=== PATIENT | female | born 1985 | race Caucasian/White ===

== ENCOUNTER 2018-02-08 18:40 | Inpatient (IN) ==
--- NOTE | 2018-02-08 18:51 | Emergency Department Note ---
Disposition Clinical Impression: Medical clearance for psychiatric admission, Acute psychosis Disposition: Admitted As Inpatient Condition: Undetermined Referrals: NONE,PCP [Primary Care Provider] - Forms: ED Satisfaction Letter Time of Disposition: 20:38 General Adult HPI - General Chief complaint: ED Psychiatric Symptoms Stated complaint: Pysch Time Seen by Provider: 02/08/18 18:43 Source: patient, EMS Mode of arrival: EMS Limitations: altered mental status Nursing Notes Reviewed: Yes Vital Signs Reviewed: Yes - History of Present Illness HPI Narrative: 32-year-old female with extensive psychiatric history, arrives to the emergency department from [facility]. The patient has concerns for delusions, psychosis and paranoia noted from EMS as well as caregivers. The patient arrives for medical clearance and then admission to 1 a per caregivers. The patient was pink slipped by EMS versus caregivers at [facility]. She arrives to the emergency department with a pink slip and place. The patient denies any active complaints at this time. She denies any suicidal or homicidal ideations. The patient does admit to the fact that "they are trying to keep her from suing different businesses". The patient denies any suicidal homicidal ideations. She is slightly agitated in the room. Pain Scale: 0 - Related Data Home Medications Medication Instructions Recorded Confirmed Multivitamin [One Daily 1 tab PO DAILY 02/08/18 02/08/18 Multivitamin] Omeprazole [PriLOSEC] 40 mg PO DAILY 02/08/18 02/08/18 Ondansetron ODT [Zofran ODT] 4 mg SL Q6H PRN 02/08/18 02/08/18 Allergies Allergy/AdvReac Type Severity Reaction Status Date / Time Penicillins Allergy See Verified 01/22/18 17:57 Comments All systems ED: reviewed and negative except as stated. Constitutional: Denies: fever, chills, weakness ENT ED: Denies: congestion Cardiovascular: Denies: chest pain Respiratory: Denies: dyspnea Gastrointestinal: Denies: abdominal pain Genitourinary: Denies: urgency Musculoskeletal: Denies: back pain Neurological: Denies: headache Psychiatric: Reports: anxiety. Denies: suicidal thoughts, homicidal thoughts, auditory hallucinations, visual hallucinations Past Medical History - Past Medical History Attestation: Yes The following information was validated with the patient. Source: patient Medical history: Reports: GERD Surgical history: Reports: no surgical history Psychiatric history: Reports: anxiety, bipolar, depression, PTSD, schizophrenia , previous psychiatric hospitalization GASTROENTEROLOGY MANAGER history: Reports: no GASTROENTEROLOGY MANAGER history - Social History Smoking Status: Current every day smoker Smokeless Tobacco Status: No Alcohol use: Reports: rarely Drug use: Reports: none Physical Exam - General Limitations: no limitations General appearance: alert, in no apparent distress, anxious - Head Head exam: atraumatic, normocephalic, normal inspection - Eye Eye exam: Present: normal appearance, PERRL, EOMI - ENT ENT exam: normal exam, normal oropharynx, mucous membranes moist - Neck Neck exam: Present: normal inspection, full ROM, trachea midline - Chest Chest inspection: Present: normal inspection, symmetric chest wall rise - Respiratory Respiratory exam: Present: normal lung sounds bilaterally - Cardiovascular Cardiovascular exam: Present: regular rate - Abdominal Exam Abdominal exam: Present: soft, Non-Tender. Absent: tenderness, distention, guarding, rebound, rigidity - Extremities Exam Extremities exam: Present: normal inspection, full ROM. Absent: tenderness, pedal edema - Neurological Exam Neurological exam: Present: alert, oriented X3, CN II-XII intact - Psychiatric Psychiatric exam: Present: agitated, anxious, manic. Absent: homicidal ideation , suicidal ideation - Skin Skin exam: Present: warm, dry, intact, normal color Course Vital Signs Temperature 98.9 F 02/08/18 18:42 Pulse Rate 89 02/08/18 18:42 Respiratory Rate 16 02/08/18 18:42 Blood Pressure 119/7 02/08/18 18:42 O2 Sat by Pulse Oximetry 97 02/08/18 18:42 Temperature 98.9 F 02/08/18 18:42 Pulse Rate 89 02/08/18 18:42 Respiratory Rate 16 02/08/18 18:42 Blood Pressure 119/7 02/08/18 18:42 O2 Sat by Pulse Oximetry 97 02/08/18 18:42 Oxygen Delivery Oxygen Delivery Room Air Medical Decision Making - MDM Narrative Medical decision making narrative: Patient medically cleared here in the emergency department. We will notify one a at this time for likely admission and she is supposed to obtain. One a notified at 2025. Patient accepted by Dr. Flowers. - Lab Data Lab results reviewed: Yes I reviewed the patient's lab results. Result diagrams: 02/08/18 19:02 02/08/18 19:02 Lab Results 02/08/18 02/08/18 02/08/18 Range/Units 19:02 19:02 19:02 WBC 12.9 H (4.3-11.1) K/mcL RBC 4.16 (3.82-4.97) M/mcL Hgb 13.6 (11.5-15.4) g/dL Hct 41.2 (35.3-44.9) % MCV 99.0 (83.0-100.0) fL MCH 32.7 (28.0-33.3) pg MCHC 33.0 (31.6-35.5) g/dL RDW 14.0 (11.5-14.5) % Plt Count 364 (140-400) K/mcL MPV 9.5 (9.4-12.4) fL Immature Gran % 0.8 (0-4) % Seg Neutrophils % 65.9 % Lymphocytes % 23.7 % Monocytes % 7.7 % Eosinophils % 1.7 % Basophils % 0.2 % Neutrophils # 8.5 (1.6-8.9) K/mcL Lymphocytes # 3.1 (0.6-4.6) K/mcL Monocytes # 1.0 (0.0-1.3) K/mcL Eosinophils # 0.2 (0.0-0.6) K/mcL Basophils # 0.0 (0.0-0.2) K/mcL Sodium 139 (136-145) mEq/L Potassium 3.7 (3.5-5.1) mEq/L Chloride 109 H (98-107) mEq/L Carbon Dioxide 20 L (23-29) mEq/L BUN 5 L (6-20) mg/dL Creatinine 0.65 (0.60-1.20) mg/dL Est GFR ( Amer) > 60 (> 60) Est GFR (Non-Af Amer) > 60 (> 60) BUN/Creatinine Ratio 8 (6-26) Glucose 229 H (70-105) mg/dL Calculated Osmolality 293 (280-300) Calcium 8.8 (8.6-10.3) mg/dL Serum , Qual Negative (Negative) Urine Color (Yellow) Urine Clarity (Clear) Urine pH (5.0-8.0) pH Units Ur Specific [place] (1.010-1.025) Urine Protein (Neg-Trace) mg/dL Urine Glucose (UA) (Normal) mg/dL Urine Ketones (Negative) mg/dL Urine Blood (Negative) Urine Nitrite (Negative) Urine Bilirubin (Negative) Urine Urobilinogen (Normal) mg/dL Ur Leukocyte Esterase (Negative) Salicylates < 2.5 L (15.0-30.0) mg/dL Urine Opiates Screen (Sczulr=973) ng/mL Acetaminophen < 10 L (10-20) mcg/mL Ur Barbiturates Screen (Pctyji=745) ng/mL Ur Phencyclidine Scrn (Cutoff=25) ng/mL Ur Amphetamines Screen (Ukwujz=7955) ng/mL U Benzodiazepines Scrn (Ssegnc=646) ng/mL Urine Cocaine Screen (Cutoff= 300) ng/mL U Marijuana (THC) Screen (Cutoff = 50) ng/mL Ethyl Alcohol < 10 (Less than 10) mg/dL Specimen Rejected 02/08/18 02/08/18 02/08/18 Range/Units 19:09 19:09 19:09 WBC (4.3-11.1) K/mcL RBC (3.82-4.97) M/mcL Hgb (11.5-15.4) g/dL Hct (35.3-44.9) % MCV (83.0-100.0) fL MCH (28.0-33.3) pg MCHC (31.6-35.5) g/dL RDW (11.5-14.5) % Plt Count (140-400) K/mcL MPV (9.4-12.4) fL Immature Gran % (0-4) % Seg Neutrophils % % Lymphocytes % % Monocytes % % Eosinophils % % Basophils % % Neutrophils # (1.6-8.9) K/mcL Lymphocytes # (0.6-4.6) K/mcL Monocytes # (0.0-1.3) K/mcL Eosinophils # (0.0-0.6) K/mcL Basophils # (0.0-0.2) K/mcL Sodium (136-145) mEq/L Potassium (3.5-5.1) mEq/L Chloride (98-107) mEq/L Carbon Dioxide (23-29) mEq/L BUN (6-20) mg/dL Creatinine (0.60-1.20) mg/dL Est GFR ( Amer) (> 60) Est GFR (Non-Af Amer) (> 60) BUN/Creatinine Ratio (6-26) Glucose (70-105) mg/dL Calculated Osmolality (280-300) Calcium (8.6-10.3) mg/dL Serum , Qual (Negative) Urine Color Yellow (Yellow) Urine Clarity Clear (Clear) Urine pH 6.0 (5.0-8.0) pH Units Ur Specific [place] 1.017 (1.010-1.025) Urine Protein Negative (Neg-Trace) mg/dL Urine Glucose (UA) Normal (Normal) mg/dL Urine Ketones Negative (Negative) mg/dL Urine Blood Negative (Negative) Urine Nitrite Negative (Negative) Urine Bilirubin Negative (Negative) Urine Urobilinogen Normal (Normal) mg/dL Ur Leukocyte Esterase Negative (Negative) Salicylates (15.0-30.0) mg/dL Urine Opiates Screen Negative (Lcpwiz=657) ng/mL Acetaminophen (10-20) mcg/mL Ur Barbiturates Screen Negative (Klnbfl=970) ng/mL Ur Phencyclidine Scrn Negative (Cutoff=25) ng/mL Ur Amphetamines Screen Negative (Oemeef=5504) ng/mL U Benzodiazepines Scrn Negative (Cwjtfw=385) ng/mL Urine Cocaine Screen Negative (Cutoff= 300) ng/mL U Marijuana (THC) Screen Negative (Cutoff = 50) ng/mL Ethyl Alcohol (Less than 10) mg/dL Specimen Rejected Miscellaneous - Radiology Data Radiology results reviewed: Yes I reviewed the patient's radiology results.
[2018-02-08 19:15] LABS: Basophils % 0.2 %; Eosinophils # 0.2 K/mcL (0.0-0.6); Eosinophils % 1.7 %; Hematocrit 41.2 % (35.3-44.9); Hemoglobin 13.6 g/dL (11.5-15.4); Immature Granulocytes % 0.8 % (0-4); Lymphocytes # 3.1 K/mcL (0.6-4.6); Lymphocytes % 23.7 %; Mean Corpuscular Hemoglobin 32.7 pg (28.0-33.3); Mean Platelet Volume 9.5 fL (9.4-12.4); Monocytes % 7.7 %; Neutrophils # 8.5 K/mcL (1.6-8.9); Platelet Count 364 K/mcL (140-400); Red Blood Count 4.16 M/mcL (3.82-4.97); Segmented Neutrophils % 65.9 %
[2018-02-08 19:33] LABS: Acetaminophen < 10 mcg/mL (10-20); BUN/Creatinine Ratio 8 (6-26); Blood Urea Nitrogen 5 mg/dL (6-20); Calcium 8.8 mg/dL (8.6-10.3); Carbon Dioxide 20 mEq/L (23-29); Chloride 109 mEq/L (98-107); Ethanol < 10 mg/dL (Less than 10); Glucose 229 mg/dL (70-105); Osmolality,Calculated 293 (280-300); Potassium 3.7 mEq/L (3.5-5.1); Salicylate < 2.5 mg/dL (15.0-30.0); Sodium 139 mEq/L (136-145); eGFR For African Americans > 60 (> 60); eGFR For Non-African Americans > 60 (> 60)
[2018-02-08 19:42] LABS: Bilirubin,Urine Negative (Negative); Blood,Urine Negative (Negative); Clarity,Urine Clear (Clear); Color,Urine Yellow (Yellow); Glucose,Urine (UA) Normal (Normal); Ketones,Urine Negative (Negative); Leukocyte Esterase,Urine Negative (Negative); Nitrite,Urine Negative (Negative); Protein,Urine Negative (Neg-Trace); Specific Gravity,Urine 1.017 (1.010-1.025); Urobilinogen,Urine Normal (Normal)
[2018-02-08 20:15] LABS: Amphetamine Screen,Urine Negative ng/mL (Cutoff=1000); Barbiturate Screen,Urine Negative ng/mL (Cutoff=200); Benzodiazepines Screen,Urine Negative ng/mL (Cutoff=200); Cannabinoid Screen,Urine Negative ng/mL (Cutoff = 50); Cocaine Screen,Urine Negative ng/mL (Cutoff= 300); Opiate Screen,Urine Negative ng/mL (Cutoff=300); Phencyclidine Screen,Urine Negative ng/mL (Cutoff=25)
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
[2018-02-08] MEDS ORDERED: *HR* LORazepam 2 MG/ML VIAL IM PRN (21:01)
[2018-02-08] MEDS ORDERED: Acetaminophen 325 MG TABLET PO PRN (21:01)
[2018-02-08] MEDS ORDERED: MOM Conc 10 ML UD.LIQ PO PRN (21:01)
[2018-02-08] MEDS ORDERED: hydrOXYzine pamoate 25 MG CAPSULE PO PRN (21:01)
[2018-02-08] MEDS ORDERED: traZODone 50 MG TABLET PO PRN (21:01)
[2018-02-08] MEDS ORDERED: *HR* LORazepam 1 MG TABLET PO PRN (21:01)
[2018-02-08] MEDS ORDERED: Haloperidol Lactate 5 MG/ML VIAL IM PRN (21:01)
[2018-02-08] MEDS ORDERED: Ondansetron ODT 4 MG TAB.RAPDIS SL PRN (21:04)
[2018-02-08] MEDS ORDERED: *HR* LORazepam 1 MG TABLET PO ONE ×2 (21:09→21:14)
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
--- NOTE | 2018-02-10 07:29 | Psychiatry Progress Note ---
Date of Encounter: 02/10/18 Time of Encounter: 07:00 Subjective Interval history: Pt is a 32 yo, , female, never (questionable legal marriage), with no children who presents for mood and depression to the emergency department. hyperreligiousosity noted. 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 Your wrong and trying to poison me. Your just using sorcery to get what you want. Pt noted "I stopped all my meds, I dont need them....God does not want me to have them I went up there and talked to him." Pt noted she felt safe and comfortable on the unit. Pt noted that she is doing fine today. Pt noted she slept 8 hours last night. Pt noted her appetite is good. Pt rated her depression a 0, on a scale of zero to ten with ten being the worst and zero being none. Pt rate her anxiety a 0, on the same scale. Pt denied any current visual or auditory hallucinations. Pt denied any thoughts to harm herself or anyone else. PT refusing all medications at this time. Pt was educated on the risks benefits and side-effects of these medications including no medication, pt was in agreement. Pt denied any hx of HIV, Hep C, or seizures pt noted delusions of previous stroke and calls it her TBI. No TD noted, AIMS=0 "I go up to [facility] and see my family occasionally, my family is witches, they are not my real family they admitted sorcery to me. My parents are from a different country, I dont know how I edded [facility] [place], the reserection is going on and I am saved. .....My [place] is [employer], I ran into her and ended up in her womb.....and yes people do demonic sacrifices of their children too......" Tobacco: 1ppd Alcohol: Denies Street: Denies Caffeine: 2-3 per day 1.Interval hx 2.Continue current medications 3.Review current labs 4.Pt had an opportunity to ask questions and discuss current treatment plan. 5.Supportive therapy was provided 6.Pt encouraged to consider group or individual therapy 7.Pt was in agreement with treatment plan. 8.Pt was educated on the risks benefits and side effects of current medications. 9. Continue to encourage pt to start fluphenazine for mood and psychosis Review of Systems Constitutional: Denies: fever, chills, weakness, weight change Eyes: Denies: eye pain, vision change Ears, Nose, Throat: Denies: ear pain, throat pain, dental pain, hearing loss, congestion Cardiovascular: Denies: chest pain, palpitations, dyspnea on exertion Respiratory: Denies: cough, dyspnea, wheezes Gastrointestinal: Denies: abdominal pain, nausea, vomiting, diarrhea, constipation Musculoskeletal: Denies: joint swelling, joint pain Neurological: Denies: headache, weakness, numbness, memory loss Psychiatric: Reports: auditory hallucinations, anhedonia, confusion Results - Vital Signs Vital Signs: Temp Pulse Resp BP Pulse Ox 98.8 F 99 19 132/83 97 02/09/18 08:57 02/09/18 08:57 02/09/18 08:57 02/09/18 08:57 02/08/18 18:42 Assessment and Plan (1) Acute psychosis Current visit: Yes Status: Acute Plan: Continue hospitalization, Close observation, Suicide Precautions per unit protocol, Encourage participation in unit milieu, Group Therapy, Monitor sleep, Monitor appetite Risks, benefits, side effects, alternatives discussed w/pt: Yes Patient agreeable to treatment: No (2) Schizoaffective disorder, bipolar type Current visit: No Status: Acute Plan: Continue hospitalization, Close observation, Suicide Precautions per unit protocol, Encourage participation in unit milieu, Group Therapy, Monitor sleep, Monitor appetite Risks, benefits, side effects, alternatives discussed w/pt: Yes Patient agreeable to treatment: No (3) Suicidal ideation Current visit: No Status: Acute Plan: Continue hospitalization, Close observation, Suicide Precautions per unit protocol, Encourage participation in unit milieu, Group Therapy, Monitor sleep, Monitor appetite Risks, benefits, side effects, alternatives discussed w/pt: Yes Patient agreeable to treatment: Yes (4) Post traumatic stress disorder (PTSD) Current visit: No Status: Acute Plan: Continue hospitalization, Close observation, Suicide Precautions per unit protocol, Encourage participation in unit milieu, Group Therapy, Monitor sleep, Monitor appetite Risks, benefits, side effects, alternatives discussed w/pt: Yes Patient agreeable to treatment: Yes Consult Discharge Plan - Plan Referrals: [facility] [place] [Outside] - 03/01/18 4:00 pm (The above appointment is with Dr. Barrios for primary care. You will also be seeing Erika for mental health counseling on March 01, 2018 at 4:30pm following your doctor appointment.) Psychiatry Exam - Constitutional Vitals: Temp Pulse Resp BP Pulse Ox 98.8 F 99 19 132/83 97 02/09/18 08:57 02/09/18 08:57 02/09/18 08:57 02/09/18 08:57 02/08/18 18:42 General appearance: age & developmentally appropriate, well-groomed, well- nourished - Musculoskeletal Gait: normal Station: relaxed Strength & Tone: normal for patient - Psychiatric Patient Orientation: Yes Person, Yes Time, Yes Place Level of alertness: Alert Behavior: calm, suspicious Psychomotor activity: Normal Eye Contact: Maintains Eye Contact Mood Description: Euthymic/stable, Anxious Affect description: congruent with mood, full range, anxious Speech Volume: Normal Speech pattern: normal rate, normal rhythm, normal tone, fluent, spontaneous Language & Vocabulary: consistent with education Thought Process: Tangential, Flight of Ideas, Thought Blocking, Evasive Thought Content: No Suicidal ideation, No Homicidal ideation, Yes Overt delusions, Yes Ideas of reference, Yes Preoccupation, Yes Paranoid delusion, Yes Restoration delusion, Yes Grandiose delusion Perceptual Disturbances: Yes Reacting to internal stimuli Attention Span Ability: Capable of Focused Attention Memory Description: Grossly Intact Patient Reliability: Reliable Historian Fund of knowledge: Yes abstraction ability, Yes aware of current events Intelligence Estimate: Average Judgment: Poor Insight: Minimal
--- NOTE | 2018-02-11 15:30 | Psychiatry Progress Note ---
Date of Encounter: 02/11/18 Time of Encounter: 15:00 Subjective Interval history: Pt is a 32 yo, , female, never (questionable legal marriage), with no children who presents for mood and depression to the emergency department. hyperreligiousosity noted. Pt noted I am a sabianism resurected and do not need your medications. Your wrong, your trying to experiment with drugs on me. Your using sorcery to get what you want. Pt noted "I am a sabianism, I am stopping all of my meds, I dont need them....God does not want me to have them." Pt noted she felt safe and comfortable on the unit. Pt noted that she is doing fine today. Pt noted she slept 8 hours last night. Pt noted her appetite is good. Pt rated her depression a 0, on a scale of zero to ten with ten being the worst and zero being none. Pt rate her anxiety a 0, on the same scale. Pt denied any current visual or auditory hallucinations, however questionable thought blocking noted. Pt denied any thoughts to harm herself or anyone else. PT refusing all medications at this time noting grandiose sabianism delusions as the reasons why. Pt was educated on the risks benefits and side-effects of these medications including no medication, pt was in agreement. Pt denied any hx of HIV, Hep C, seizures or TBI. No TD noted, AIMS=0 "I go up to [facility] and see my family occasionally, my family is witches, they are not my real family they admitted sorcery to me. My parents are from a different country, I dont know how I edded up in [place], the reserection is going on and I am saved. .....My [place] is [place], I ran into her and ended up in her womb.....and yes people do demonic sacrifices of their children too......" Tobacco: 1ppd Alcohol: Denies Street: Denies Caffeine: 2-3 per day 1.Interval hx 2.Continue current medications 3.Review current labs 4.Pt had an opportunity to ask questions and discuss current treatment plan. 5.Supportive therapy was provided 6.Pt encouraged to consider group or individual therapy 7.Pt was in agreement with treatment plan. 8.Pt was educated on the risks benefits and side effects of current medications. 9. Continue to encourage pt to start fluphenazine for mood and psychosis 10. Court date pending for involuntary hold and court ordered medications. Review of Systems Constitutional: Denies: fever, chills, weakness, weight change Eyes: Denies: eye pain, vision change Ears, Nose, Throat: Denies: ear pain, throat pain, dental pain, hearing loss, congestion Cardiovascular: Denies: chest pain, palpitations, dyspnea on exertion Respiratory: Denies: cough, dyspnea, wheezes Gastrointestinal: Denies: abdominal pain, nausea, vomiting, diarrhea, constipation Musculoskeletal: Denies: joint swelling, joint pain Neurological: Denies: headache, weakness, numbness, memory loss Psychiatric: Reports: auditory hallucinations, anhedonia, confusion Results - Vital Signs Vital Signs: Temp Pulse Resp BP Pulse Ox 98.8 F 99 19 132/83 97 02/09/18 08:57 02/09/18 08:57 02/09/18 08:57 02/09/18 08:57 02/08/18 18:42 Assessment and Plan (1) Acute psychosis Current visit: Yes Status: Acute Plan: Continue hospitalization, Close observation, Suicide Precautions per unit protocol, Encourage participation in unit milieu, Group Therapy, Monitor sleep, Monitor appetite Risks, benefits, side effects, alternatives discussed w/pt: Yes Patient agreeable to treatment: No (2) Schizoaffective disorder, bipolar type Current visit: No Status: Acute Plan: Continue hospitalization, Close observation, Suicide Precautions per unit protocol, Encourage participation in unit milieu, Group Therapy, Monitor sleep, Monitor appetite Risks, benefits, side effects, alternatives discussed w/pt: Yes Patient agreeable to treatment: No (3) Suicidal ideation Current visit: No Status: Acute Plan: Continue hospitalization, Close observation, Suicide Precautions per unit protocol, Encourage participation in unit milieu, Group Therapy, Monitor sleep, Monitor appetite Risks, benefits, side effects, alternatives discussed w/pt: Yes Patient agreeable to treatment: Yes (4) Post traumatic stress disorder (PTSD) Current visit: No Status: Acute Plan: Continue hospitalization, Close observation, Suicide Precautions per unit protocol, Encourage participation in unit milieu, Group Therapy, Monitor sleep, Monitor appetite Risks, benefits, side effects, alternatives discussed w/pt: Yes Patient agreeable to treatment: Yes Consult Discharge Plan - Plan Referrals: [facility] [place] [Outside] - 03/01/18 4:00 pm (The above appointment is with Dr. Barrios for primary care. You will also be seeing Erika for mental health counseling on March 01, 2018 at 4:30pm following your doctor appointment.) Psychiatry Exam - Constitutional Vitals: Temp Pulse Resp BP Pulse Ox 98.8 F 99 19 132/83 97 02/09/18 08:57 02/09/18 08:57 02/09/18 08:57 02/09/18 08:57 02/08/18 18:42 General appearance: age & developmentally appropriate, well-groomed, well- nourished - Musculoskeletal Gait: normal Station: relaxed Strength & Tone: normal for patient - Psychiatric Patient Orientation: Yes Person, Yes Time, Yes Place Level of alertness: Alert Behavior: calm, agitated, suspicious Psychomotor activity: Normal Eye Contact: Maintains Eye Contact Mood Description: Expansive Affect description: congruent with mood Speech Volume: Normal Speech pattern: normal rate, normal rhythm, normal tone, fluent, spontaneous Language & Vocabulary: consistent with education Thought Process: Loose Associations, Tangential, Thought Blocking, Disorganized Thought Content: Yes Paranoid delusion, Yes Lutheran delusion, Yes Grandiose delusion Perceptual Disturbances: Yes Reacting to internal stimuli Attention Span Ability: Capable of Sustained Attention Memory Description: Grossly Intact Patient Reliability: Questionable Historian Fund of knowledge: Yes average Intelligence Estimate: Average Judgment: Poor Insight: Minimal
--- NOTE | 2018-02-12 19:10 | Psychiatry Progress Note ---
Date of Encounter: 02/12/18 Time of Encounter: 12:45 Subjective Interval history: Pt is a 32 yo, , female, never (questionable legal marriage), with no children who presents for mood and depression to the emergency department. hyperreligiousosity noted. 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 Pt noted that she is doing fine today. Pt noted she slept 8 hours last night. Pt noted her appetite is good. Pt rated her depression a 0, on a scale of zero to ten with ten being the worst and zero being none. Pt rate her anxiety a 0, on the same scale. Pt denied any current visual or auditory hallucinations, however questionable thought blocking noted. Pt denied any thoughts to harm herself or anyone else. PT refusing all medications at this time noting grandiose moravian delusions as the reasons why. Pt was educated on the risks benefits and side-effects of these medications including no medication, pt was in agreement. Pt denied any hx of HIV, Hep C, seizures or TBI. No TD noted, AIMS=0 previous statement: "I go up to [facility] and see my family occasionally, my family is witches, they are not my real family they admitted sorcery to me. My parents are from a different country, I dont know how I edded up [place], the reserection is going on and I am saved. .....My [place] is [place], I ran into her and ended up in her womb.....and yes people do demonic sacrifices of their children too......" Tobacco: 1ppd Alcohol: Denies Street: Denies Caffeine: 2-3 per day 1.Interval hx 2.Continue current medications 3.Review current labs 4.Pt had an opportunity to ask questions and discuss current treatment plan. 5.Supportive therapy was provided 6.Pt encouraged to consider group or individual therapy 7.Pt was in agreement with treatment plan. 8.Pt was educated on the risks benefits and side effects of current medications. 9. Continue to encourage pt to start fluphenazine for mood and psychosis 10. Court date pending for involuntary hold and court ordered medications. Review of Systems Psychiatric: Reports: auditory hallucinations, anhedonia, confusion Results - Vital Signs Vital Signs: Temp Pulse Resp BP Pulse Ox 98.8 F 99 19 132/83 97 02/09/18 08:57 02/09/18 08:57 02/09/18 08:57 02/09/18 08:57 02/08/18 18:42 Assessment and Plan (1) Acute psychosis Current visit: Yes Status: Acute Risks, benefits, side effects, alternatives discussed w/pt: Yes Patient agreeable to treatment: No (2) Schizoaffective disorder, bipolar type Current visit: No Status: Acute Risks, benefits, side effects, alternatives discussed w/pt: Yes Patient agreeable to treatment: No (3) Suicidal ideation Current visit: No Status: Acute Risks, benefits, side effects, alternatives discussed w/pt: Yes Patient agreeable to treatment: Yes (4) Post traumatic stress disorder (PTSD) Current visit: No Status: Acute Risks, benefits, side effects, alternatives discussed w/pt: Yes Patient agreeable to treatment: Yes Consult Discharge Plan - Plan Referrals: [facility] [place] [Outside] - 03/01/18 4:00 pm (The above appointment is with Dr. Barrios for primary healthcare and medication management services. You will also be seeing Erika for mental health counseling on March 01, 2018 at 4:30pm following your doctor appointment.) Psychiatry Exam - Constitutional Vitals: Temp Pulse Resp BP Pulse Ox 98.8 F 99 19 132/83 97 02/09/18 08:57 02/09/18 08:57 02/09/18 08:57 02/09/18 08:57 02/08/18 18:42
[2018-02-13] MEDS: Mag Hydrox/Al Hydrox/Simeth 30 ML UDC PO PRN (09:31)
--- NOTE | 2018-02-13 10:21 | Psychiatry Progress Note ---
Date of Encounter: 02/13/18 Time of Encounter: 09:50 Subjective Interval history: Patient seen today , case d/w staff and chart reviewed , She is 32 year ld SWF with h/o Schizophrenia , she was admitted as stopped all her psychiatric medications,she was supposed to have surgery but she refused . she at present states i do not need medicine with medicine i feel like fat slob that can not do any thing. I am not danger to my self or others , i do not hear voices, i was misdiagnosed. i get vision which is private btw me and God and then states i saw GOD and Daniel andry came down and i saw Satan but God fight for me and i am safe and he will heal me. i have cysts all over my body i believe it is possible that i was struck by Satan and he gave me that , I am Catholic and i will be struck with devil and satan. if God will tell me that person is evil and will hurt , then i will do something but until then i will not do anything. i believe in scientalogy as it work thru mind and not medicine. i am not violent and i just do not want medicine. i have tried abilify it is dangerous medicine , when i took it the devil enter in me and made me hurt someone but i did not hurt anyone Thank God. also has tried risperdal which makes her sick. olanzapine makes me fat and lazy , seroquel is same. physically feels better. She is still refusing all medications. Review of Systems Psychiatric: Reports: auditory hallucinations, anhedonia, confusion Results - Vital Signs Vital Signs: Temp Pulse Resp BP Pulse Ox 98.8 F 99 19 132/83 97 02/09/18 08:57 02/09/18 08:57 02/09/18 08:57 02/09/18 08:57 02/08/18 18:42 Assessment and Plan (1) Schizoaffective disorder, bipolar type Current visit: No Status: Acute Plan: Continue hospitalization, Close observation, Encourage participation in unit milieu, Group Therapy, Monitor appetite, Family/Supportive other meeting Risks, benefits, side effects, alternatives discussed w/pt: Yes Patient agreeable to treatment: No Consult Discharge Plan - Plan Referrals: [facility] [place] [Outside] - 03/01/18 4:00 pm (The above appointment is with Dr. Barrios for primary healthcare and medication management services. You will also be seeing Erika for mental health counseling on March 01, 2018 at 4:30pm following your doctor appointment.) Psychiatry Exam - Constitutional Vitals: Temp Pulse Resp BP Pulse Ox 98.8 F 99 19 132/83 97 02/09/18 08:57 02/09/18 08:57 02/09/18 08:57 02/09/18 08:57 02/08/18 18:42 General appearance: age & developmentally appropriate - Musculoskeletal Gait: normal Station: relaxed Strength & Tone: normal for patient - Psychiatric Patient Orientation: Yes Person, Yes Time, Yes Place Level of alertness: Alert Behavior: calm, cooperative Psychomotor activity: Normal Eye Contact: Maintains Eye Contact Mood Description: Euthymic/stable Affect description: constricted Speech Volume: Normal Speech pattern: normal rate, normal rhythm, normal tone Language & Vocabulary: consistent with education Thought Process: Intact Thought Content: Yes Mosque delusion, Yes Grandiose delusion, Yes Somatic delusion Perceptual Disturbances: Yes Visual hallucinations Attention Span Ability: Capable of Focused Attention Memory Description: Grossly Intact Patient Reliability: Reliable Historian Fund of knowledge: Yes average Intelligence Estimate: Average Judgment: Limited Insight: None
--- NOTE | 2018-02-14 11:52 | Psychiatry Progress Note ---
Date of Encounter: 02/14/18 Time of Encounter: 11:25 Subjective Interval history: Patient seen today , case d/w staff , as per staff has been refusing treatment and not taking any medicine. She states she is sleeping good and feels well rested , i feel good , i am eating and i am walking the halls to get exercise. she is denying being depressed but feels frustrated about being in hospital , she denies a/v hallucination , states i do not have any visions now and i knoe God does not want me to be in hospital. i know there is marquez btw good and evil and therefore i need to be in hindu, with medications its hard to be in programme. she is preoccupied with Confucianism and going their for treatment , feels psychiatric medications make her mind worse, states i can clear my mind my self/ refusing medications. she denies si/hi. Review of Systems Psychiatric: Reports: auditory hallucinations, anhedonia, confusion Results - Vital Signs Vital Signs: Temp Pulse Resp BP Pulse Ox 98.8 F 99 19 132/83 97 02/09/18 08:57 02/09/18 08:57 02/09/18 08:57 02/09/18 08:57 02/08/18 18:42 Assessment and Plan (1) Schizoaffective disorder, bipolar type Current visit: No Status: Acute Risks, benefits, side effects, alternatives discussed w/pt: Yes Patient agreeable to treatment: No Consult Discharge Plan - Plan Referrals: [facility] [place] [Outside] - 03/01/18 4:00 pm (The above appointment is with Dr. Barrios for primary healthcare and medication management services. You will also be seeing Erika for mental health counseling on March 01, 2018 at 4:30pm following your doctor appointment.) Psychiatry Exam - Constitutional Vitals: Temp Pulse Resp BP Pulse Ox 98.8 F 99 19 132/83 97 02/09/18 08:57 02/09/18 08:57 02/09/18 08:57 02/09/18 08:57 02/08/18 18:42 General appearance: average - Musculoskeletal Gait: normal Station: other Strength & Tone: normal for patient - Psychiatric Patient Orientation: Yes Person, Yes Time, Yes Place Level of alertness: Alert Behavior: calm, cooperative Psychomotor activity: Normal Eye Contact: Maintains Eye Contact Mood Description: Euthymic/stable Affect description: constricted Speech Volume: Normal Speech pattern: coherent Language & Vocabulary: consistent with education Thought Process: Circumstantial Thought Content: Yes Preoccupation Perceptual Disturbances: Yes Visual hallucinations Attention Span Ability: Capable of Focused Attention Memory Description: Grossly Intact Patient Reliability: Reliable Historian Fund of knowledge: Yes average Intelligence Estimate: Average Judgment: Limited Insight: None
--- NOTE | 2018-02-15 11:04 | Psychiatry Progress Note ---
Date of Encounter: 02/15/18 Time of Encounter: 10:40 Subjective Interval history: patient seen today case d/w treatment team and she continuously refusing treatment and mostly pacing on the unit. I am bored and want to leave and get on with my life. tomorrow is probate hearing, she states her agency owner from [employer] will come. you are playing with some ones brain which is GOD s job and holy spirit. you are playing with my thought process and playing GOD. she has fixed delusion about being raped by demons , but now feels it stopped as GOD stopped it. as per rn case mgr she lost her housing as she was telling everyone that their is mold in building and her apartment, and she was let out of her lease. she states holy spirit in her telling her not to take medications and GOD will heal her and she is feeling better , medicine make me worse. remains delusional , not having any si/hi but she has agreed being told not to eat certain things and i will have allergic reaction to it. patient needs medications and treatment for her mental condition. Review of Systems Psychiatric: Reports: auditory hallucinations, anhedonia, confusion Results - Vital Signs Vital Signs: Temp Pulse Resp BP Pulse Ox 98.8 F 99 19 132/83 97 02/09/18 08:57 02/09/18 08:57 02/09/18 08:57 02/09/18 08:57 02/08/18 18:42 Assessment and Plan (1) Schizoaffective disorder, bipolar type Current visit: No Status: Acute Risks, benefits, side effects, alternatives discussed w/pt: Yes Patient agreeable to treatment: No Consult Discharge Plan - Plan Referrals: [facility] [place] [Outside] - 03/01/18 4:00 pm (The above appointment is with Dr. Barrios for primary healthcare and medication management services. You will also be seeing Erika for mental health counseling on March 01, 2018 at 4:30pm following your doctor appointment.) Psychiatry Exam - Constitutional Vitals: Temp Pulse Resp BP Pulse Ox 98.8 F 99 19 132/83 97 02/09/18 08:57 02/09/18 08:57 02/09/18 08:57 02/09/18 08:57 02/08/18 18:42 General appearance: average - Musculoskeletal Gait: normal Station: other Strength & Tone: normal for patient - Psychiatric Patient Orientation: Yes Person, Yes Time, Yes Place Level of alertness: Alert Behavior: cooperative, guarded Psychomotor activity: Normal Eye Contact: Maintains Eye Contact Mood Description: Other (better since i am off medicine.) Affect description: constricted Speech Volume: Normal Speech pattern: appropriate Language & Vocabulary: consistent with education Thought Process: Circumstantial Thought Content: Yes Preoccupation, Yes Paranoid delusion, Yes Religion delusion, Yes Grandiose delusion Perceptual Disturbances: Yes Reacting to internal stimuli Attention Span Ability: Capable of Focused Attention Memory Description: Grossly Intact Patient Reliability: Reliable Historian Fund of knowledge: Yes average Intelligence Estimate: Average Judgment: Limited Insight: None
[2018-02-16] MEDS: Ibuprofen 400 MG TABLET PO PRN (12:54)
--- NOTE | 2018-02-16 13:53 | Psychiatry Progress Note ---
Date of Encounter: 02/16/18 Time of Encounter: 13:10 Subjective Interval history: Patient seen today , case d/w treatment team , she is refusing all treatment including vitals bc God will heal her. She remains preoccupied wth medications are harming her and God has told her to not take medications, she is pacing a lot on unit but not agitated , she states she is pacing to exercise. she is denying si/hi but has vision of God and ashleigh andry. today is probate and will decide for her treatment plan. Review of Systems Psychiatric: Reports: auditory hallucinations, anhedonia, confusion Results - Vital Signs Vital Signs: Temp Pulse Resp BP Pulse Ox 98.8 F 99 19 132/83 97 02/09/18 08:57 02/09/18 08:57 02/09/18 08:57 02/09/18 08:57 02/08/18 18:42 Assessment and Plan (1) Schizoaffective disorder, bipolar type Current visit: No Status: Acute Risks, benefits, side effects, alternatives discussed w/pt: Yes Patient agreeable to treatment: No Consult Discharge Plan - Plan Referrals: [facility] [place] [Outside] - 03/01/18 4:00 pm (The above appointment is with Dr. Barrios for primary healthcare and medication management services. You will also be seeing Erika for mental health counseling on March 01, 2018 at 4:30pm following your doctor appointment.) Psychiatry Exam - Constitutional Vitals: Temp Pulse Resp BP Pulse Ox 98.8 F 99 19 132/83 97 02/09/18 08:57 02/09/18 08:57 02/09/18 08:57 02/09/18 08:57 02/08/18 18:42 General appearance: obese - Musculoskeletal Gait: normal Station: other Strength & Tone: normal for patient - Psychiatric Patient Orientation: Yes Person, Yes Time, Yes Place Level of alertness: Alert Behavior: cooperative, talkative Psychomotor activity: Normal Eye Contact: Minimal Contact Mood Description: Anxious Affect description: constricted Speech Volume: Normal Speech pattern: coherent, excessive Language & Vocabulary: consistent with education Thought Process: Circumstantial, Racing Thought Content: Yes Worship delusion, Yes Grandiose delusion Attention Span Ability: Capable of Focused Attention Memory Description: Grossly Intact Patient Reliability: Questionable Historian Fund of knowledge: Yes average Intelligence Estimate: Average Judgment: Poor Insight: None
[2018-02-16] MEDS: Mag Hydrox/Al Hydrox/Simeth 30 ML UDC PO PRN (20:19)
--- NOTE | 2018-02-17 11:54 | Psychiatry Progress Note ---
Date of Encounter: 02/17/18 Time of Encounter: 11:25 Subjective Interval history: Patient seen today case d/w treatment team , she had probate hearing yesterday and is now suppose to take medication as per court order. She is upset and states when i am ok why i need medicine, states reason i go to [facility] is witch craft is stonger than medications and i rather be in [facility] and not here, i wanted to proof to society i can live with out medications. I had seen GOD that is true and i have seen Satan that is true also. but i am not delusional and you all lied. i know abilify maked me feel like hurting people, she states effexor gives me headache and i throw up. Her records show show in 11/08 had more than 100 level of prolactin and medications caused hyper prolactin. she has had galactorrhea and therefore option to give other medication which will not affect her prolactin. Review of Systems Psychiatric: Reports: auditory hallucinations, anhedonia, confusion Results - Vital Signs Vital Signs: Temp Pulse Resp BP Pulse Ox 97.1 F L 93 16 123/76 97 02/17/18 08:23 02/17/18 08:23 02/17/18 08:02/17/18 08:23 02/08/18 18:42 Assessment and Plan (1) Schizoaffective disorder, bipolar type Current visit: No Status: Acute Risks, benefits, side effects, alternatives discussed w/pt: Yes Patient agreeable to treatment: No Consult Discharge Plan - Plan Referrals: [facility] [place] [Outside] - 03/01/18 4:00 pm (The above appointment is with Dr. Barrios for primary healthcare and medication management services. You will also be seeing Erika for mental health counseling on March 01, 2018 at 4:30pm following your doctor appointment.) Psychiatry Exam - Constitutional Vitals: Temp Pulse Resp BP Pulse Ox 97.1 F L 93 16 123/76 97 02/17/18 08:23 02/17/18 08:23 02/17/18 08:23 02/17/18 08:23 02/08/18 18:42 General appearance: obese, average - Musculoskeletal Gait: normal Station: other Strength & Tone: normal for patient - Psychiatric Patient Orientation: Yes Person, Yes Time, Yes Place Level of alertness: Alert Behavior: anxious, guarded Psychomotor activity: Normal Eye Contact: Maintains Eye Contact Mood Description: Irritable Affect description: congruent with mood Speech Volume: Normal Speech pattern: coherent Language & Vocabulary: consistent with education Thought Content: Yes Preoccupation, Yes Mandaeism delusion Attention Span Ability: Capable of Focused Attention Memory Description: Grossly Intact Patient Reliability: Questionable Historian Fund of knowledge: Yes average Intelligence Estimate: Average Judgment: Poor Insight: Minimal
[2018-02-17 14:21] LABS: Hematocrit 42.6 % (35.3-44.9); Hemoglobin 14.4 g/dL (11.5-15.4); Mean Corpuscular HGB Conc 33.8 g/dL (31.6-35.5); Mean Corpuscular Hemoglobin 33.1 pg (28.0-33.3); Mean Corpuscular Volume 97.9 fL (83.0-100.0); Mean Platelet Volume 9.8 fL (9.4-12.4); Platelet Count 364 K/mcL (140-400); Red Blood Count 4.35 M/mcL (3.82-4.97); Red Cell Distribution Width 12.3 % (11.5-14.5)
[2018-02-17 14:38] LABS: Estimated Average Glucose 111 mg/dl; Hemoglobin A1C 5.5 %
[2018-02-17] MEDS: Ibuprofen 400 MG TABLET PO PRN ×2 (17:13→22:40)
[2018-02-17] MEDS: Mag Hydrox/Al Hydrox/Simeth 30 ML UDC PO PRN (22:26)
[2018-02-18] MEDS: Ibuprofen 400 MG TABLET PO PRN ×2 (04:56→20:35)
[2018-02-18] MEDS: Mag Hydrox/Al Hydrox/Simeth 30 ML UDC PO PRN ×3 (09:06→21:56)
--- NOTE | 2018-02-18 09:27 | Psychiatry Progress Note ---
Date of Encounter: 02/18/18 Time of Encounter: 09:00 Subjective Interval history: Patient seen today , case d/w treatment team and she remains same . HER prolactin level is still high 69 and hga1c is 5.5. she has been off medications since 11/08. she was on injectable. at present can not take abilify as it caused her side effects and made her homicidal as per her. will start low dose rexulti and patient agreed with the plan , plan to increase slowly depending on her response. she has to be placed as has lost her housing. she is not on any medications at present. continue stabilization , patient is now on court order for her continuous treatment. Review of Systems Psychiatric: Reports: auditory hallucinations, anhedonia, confusion Results - Vital Signs Vital Signs: Temp Pulse Resp BP Pulse Ox 98.4 F 98 16 110/75 97 02/18/18 09:18 02/18/18 09:18 02/18/18 09:18 02/18/18 09:18 02/08/18 18:42 - Labs Labs: Laboratory Results - last 24 hr 02/17/18 02/17/18 02/17/18 14:07 14:07 14:07 WBC 9.7 RBC 4.35 Hgb 14.4 Hct 42.6 MCV 97.9 MCH 33.1 MCHC 33.8 RDW 12.3 Plt Count 364 MPV 9.8 Est Mean Plasma Glucose 111 Hemoglobin A1c 5.5 Prolactin 64.99 H Assessment and Plan (1) Schizoaffective disorder, bipolar type Current visit: No Status: Acute Risks, benefits, side effects, alternatives discussed w/pt: Yes Patient agreeable to treatment: No Consult Discharge Plan - Plan Referrals: [facility] [place] [Outside] - 03/01/18 4:00 pm (The above appointment is with Dr. Barrios for primary healthcare and medication management services. You will also be seeing Erika for mental health counseling on March 01, 2018 at 4:30pm following your doctor appointment.) Psychiatry Exam - Constitutional Vitals: Temp Pulse Resp BP Pulse Ox 98.4 F 98 16 110/75 97 02/18/18 09:18 02/18/18 09:18 02/18/18 09:18 02/18/18 09:18 02/08/18 18:42 General appearance: age & developmentally appropriate - Musculoskeletal Gait: normal Station: other Strength & Tone: normal for patient - Psychiatric Patient Orientation: Yes Person, Yes Time, Yes Place Level of alertness: Alert Behavior: cooperative, talkative Psychomotor activity: Normal Eye Contact: Maintains Eye Contact Mood Description: Euthymic/stable Affect description: constricted Speech Volume: Normal Speech pattern: coherent Language & Vocabulary: consistent with education Thought Process: Racing Thought Content: Yes Preoccupation, Yes Uatsdin delusion, Yes Grandiose delusion Attention Span Ability: Capable of Focused Attention Memory Description: Grossly Intact Patient Reliability: Questionable Historian Fund of knowledge: Yes average Intelligence Estimate: Average Judgment: Limited Insight: None
[2018-02-18] MEDS ORDERED: Brexpiprazole [Rexulti] 1 MG PO SCH (21:00)
[2018-02-19 09:49] VITALS: BP 131/74
--- NOTE | 2018-02-19 11:35 | Discharge Summary ---
Date of Encounter: 02/19/18 Time of Encounter: 11:32 Diagnosis - Discharge Diagnosis (1) Schizoaffective disorder, bipolar type Status: Acute Medications - Discharge Medications Prescriptions: Brexpiprazole [Rexulti] 1 mg PO HS #30 tablet Ferrous Sulfate [Iron] 325 mg PO DAILY 02/08/18 [History] Multivitamin [One Daily Multivitamin] 1 tab PO DAILY 02/08/18 [History] Omeprazole [PriLOSEC] 40 mg PO DAILY 02/08/18 [History] Brexpiprazole [Rexulti] 1 mg PO HS #30 tablet 02/19/18 [Rx] 3 Allergy/AdvReac Type Severity Reaction Status Date / Time Penicillins Allergy See Verified 01/22/18 17:57 Comments Results Procedures and tests throughout hospitalization: Completed Lab Orders Category Date Time Status CBC no Diff [Complete Blood Count w/o Diff] [HEME] Lab 02/17/18 14:07 Completed Routine Hgb A1C Routine Lab 02/17/18 14:07 Completed Prolactin Routine Lab 02/17/18 14:07 Completed Provider Date of admission: 02/08/18 20:59 Primary care physician: PCP NONE Discharging clinician: Nettie Apple Psychiatry Exam - Constitutional Vitals: Temp Pulse Resp BP Pulse Ox 96.8 F L 105 16 131/74 97 02/19/18 09:00 02/19/18 09:00 02/19/18 09:00 02/19/18 09:00 02/08/18 18:42 General appearance: age & developmentally appropriate, well-groomed, well- nourished - Musculoskeletal Gait: normal Station: relaxed Strength & Tone: normal for patient - Psychiatric Patient Orientation: Yes Person, Yes Time, Yes Place Level of alertness: Alert Behavior: calm, cooperative Psychomotor activity: Normal Eye Contact: Maintains Eye Contact Mood Description: Euthymic/stable Affect description: congruent with mood Speech Volume: Normal Speech pattern: normal rate, normal rhythm, normal tone, fluent, spontaneous Language & Vocabulary: consistent with education Thought Process: Linear, Goal Oriented Thought Content: No Suicidal ideation, No Homicidal ideation, Yes Overt delusions Perceptual Disturbances: Yes Auditory hallucinations Attention Span Ability: Capable of Focused Attention Memory Description: Grossly Intact Patient Reliability: Reliable Historian Fund of knowledge: Yes abstraction ability, Yes aware of current events Intelligence Estimate: Above [place] Judgment: Fair Insight: Minimal Hospital Course Hospital course: Ms. Agee is a 32 year old female admitted secondary to psychosis. Diagnosed with Schizoaffective Disorder. Client is very up front that she does not agree with her diagnosis or the need for medications. She is taking 1mg of a new antipsychotic because she says it helps her sleep. She also admits it helps her thoughts and helps her focus. She is unwilling to consider that it's primary purpose is to stabilize a major mental illness but it does seem to be effective for her when it comes to treating more acute symptoms. Mood appears stable. She denies any current or past SI/HI. She receives lots of support from her grandmother and her sabianism. Client does attribute AH and other symptoms of psychosis to samaritan experiences. Willing to follow up with a psychiatrist. Does not present as a danger to self or others. Many of her symptoms are likely fixed/refractory to treatment. However, she is pleasant. Seems bright/educated. Future oriented. - Time Spent with Patient Total time spent providing and/or coordinating discharge services: Assessment and Plan - Patient/Caregiver Discharge Instructions Activity: resume usual activities as tolerated Diet: regular diet - Follow up Plan Follow up with: [facility] [place] [Outside] - 03/01/18 4:00 pm (The above appointment is with Dr. Barrios for primary healthcare and medication management services. You will also be seeing Erika for mental health counseling on March 01, 2018 at 4:30pm following your doctor appointment.) Asya Dill [Non-Partnered Physician] - 03/31/18 10:00 am (The above appointment is with Dr. Dill, psychiatrist at [facility]. Please bring your insurance card and photo ID. Please arrive 15 minutes early to complete paperwork.) Overall status at discharge: Stable Disposition: Home, Self-Care Quality - Multiple Antipsychotics Patient discharged on 2 or more antipsychotic medications: No Procedures - Procedures Procedures: Medication Management, Crisis Stabilization, Supportive Therapy, Group Therapy
== END 2018-02-19 13:50 | disposition home or self-care (01) | DRG 885 ==
LOC: EMEROO 18:40 → 1ANU 20:59 → SUATTDRO 20:59 → 1ANU 21:29
PROVIDERS: ADMIT General Practice; ATTEND Psychiatry & Neurology Psychiatry

== ENCOUNTER 2019-03-02 22:19 | Inpatient (IN) ==
[2019-03-02 22:56] LABS: Basophils % 0.2 %; Eosinophils # 0.2 K/mcL (0.0-0.6); Eosinophils % 1.2 %; Hematocrit 36.8 % (35.3-44.9); Hemoglobin 12.1 g/dL (11.5-15.4); Immature Granulocytes % 0.7 % (0-4); Lymphocytes # 3.3 K/mcL (0.6-4.6); Lymphocytes % 18.3 %; Mean Corpuscular HGB Conc 32.9 g/dL (31.6-35.5); Mean Corpuscular Volume 88.2 fL (83.0-100.0); Mean Platelet Volume 9.1 fL (9.4-12.4); Monocytes # 1.1 K/mcL (0.0-1.3); Monocytes % 6.2 %; Neutrophils # 13.3 K/mcL (1.6-8.9); Platelet Count 494 K/mcL (140-400); Red Blood Count 4.17 M/mcL (3.82-4.97); Red Cell Distribution Width 16.4 % (11.5-14.5); Segmented Neutrophils % 73.4 %; White Blood Count 18.1 K/mcL (4.3-11.1)
[2019-03-02 23:01] LABS: Amphetamine Screen,Urine Negative ng/mL (Cutoff=1000); Barbiturate Screen,Urine Negative ng/mL (Cutoff=200); Benzodiazepines Screen,Urine Negative ng/mL (Cutoff=200); Cannabinoid Screen,Urine Negative ng/mL (Cutoff = 50); Cocaine Screen,Urine Negative ng/mL (Cutoff= 300); Opiate Screen,Urine Negative ng/mL (Cutoff=300); Phencyclidine Screen,Urine Negative ng/mL (Cutoff=25)
--- NOTE | 2019-03-02 23:07 | Emergency Department Note ---
Disposition Clinical Impression: Visual hallucination, Chronic schizophrenia, Acute psychosis Disposition: Transfer Psychiatric Hosp Condition: Fair Time of Disposition: 02:45 Psych HPI - General Chief Complaint: ED Psychiatric Symptoms Stated Complaint: Hearing Voices Time Seen by Provider: 03/02/19 22:50 Source: patient Limitations: no limitations Nursing Notes Reviewed: Yes Vital Signs Reviewed: Yes - History of Present Illness HPI Narrative: 33-year-old female with history of schizophrenia and psychosis presents the emergency room for an evaluation. She states that she has been hearing voices and seeing bugs and animals all around her as well as flies and other insects coming from her head. She has had this in the past. She denies any suicidal ideations at this time Pt complaint: anxiety Onset (ago): day(s) (Several) Duration: intermittent History of similar episodes: Yes Improves with: medication Worsens with: other (Unsure but with the recent medication change it has worsened.) Alleged intoxication: No Associated Psychiatric Symptoms: auditory hallucinations, visual hallucinations, delusions, anxiety Treatments prior to arrival: none Self harm or harm to others: admits thoughts of self harm (At times), denies having a plan - Related Data Home Medications Medication Instructions Recorded Confirmed Abilify Q4W 03/03/19 BuPROPion [Wellbutrin] 100 mg PO HS 03/03/19 03/03/19 Cogentin Q4W 03/03/19 Previous Rx's Medication Instructions Recorded hydrOXYzine pamoate [Vistaril] 25 mg PO TID PRN #60 capsule 12/23/18 Allergies Allergy/AdvReac Type Severity Reaction Status Date / Time Penicillins Allergy See Verified 03/02/19 22:22 Comments red dye Allergy Hives Verified 03/02/19 22:22 psych meds Allergy Vomiting Uncoded 03/02/19 22:22 All systems ED: reviewed and negative except as stated. Constitutional: Denies: fever, chills, weakness, weight change Eyes: Denies: eye pain, eye discharge, vision change ENT ED: Denies: ear pain, throat pain, dental pain, hearing loss, epistaxis, congestion, dysphagia Cardiovascular: Denies: chest pain, palpitations, dyspnea on exertion, edema, syncope Respiratory: Denies: cough, dyspnea, wheezes, hemoptysis, stridor Gastrointestinal: Denies: abdominal pain, nausea, vomiting, diarrhea, cons tipation, hematemesis, melena, hematochezia Genitourinary: Denies: dysuria, frequency, hematuria, discharge Musculoskeletal: Denies: back pain, neck pain, arthralgia, myalgia Integumentary: Denies: rash, abrasion, lesions Neurological: Denies: headache, weakness, numbness, paresthesias, confusion, a bnormal gait, vertigo Psychiatric: Reports: anxiety, auditory hallucinations, visual hallucinations Endocrine: Denies: fatigue Hematological/Lymphatic: Denies: easy bleeding, easy bruising Allergic/Immunologic: Denies: facial swelling, urticaria Past Medical History - Past Medical History Attestation: Yes The following information was validated with the patient. 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: no USER EXPERIENCE DEVELOPER history - Social History Smoking Status: Current every day smoker Smokeless Tobacco Status: No Alcohol use: Reports: none Drug use: Reports: none Physical Exam - General Limitations: no limitations General appearance: alert - Head Head exam: atraumatic, normocephalic, normal inspection - Eye Eye exam: Present: normal appearance, PERRL, EOMI - ENT ENT exam: normal exam, normal oropharynx, mucous membranes moist - Neck Neck exam: Present: normal inspection, full ROM, trachea midline - Chest Chest inspection: Present: normal inspection, symmetric chest wall rise - Respiratory Respiratory exam: Present: normal lung sounds bilaterally - Cardiovascular Cardiovascular exam: Present: regular rate, normal rhythm, normal heart sounds - Abdominal Exam Abdominal exam: Present: soft, Non-Tender. Absent: tenderness, distention, guarding, rebound, rigidity - Extremities Exam Extremities exam: Present: normal inspection, full ROM. Absent: tenderness, pedal edema - Expanded Lower Extremity Exam Hip/Pelvis exam: Present: normal inspection, full ROM. Absent: tenderness Upper leg exam: Present: normal inspection, full ROM. Absent: tenderness Knee exam: Present: normal inspection, full ROM. Absent: tenderness Lower leg exam: Present: normal inspection, full ROM. Absent: tenderness Ankle exam: Present: normal inspection, full ROM. Absent: tenderness Foot/toe exam: Present: normal inspection, full ROM. Absent: tenderness Neurovascular/Tendon exam: Absent: motor deficit, sensory deficit, tendon deficit - Back Exam Back exam: Present: normal inspection, full ROM. Absent: tenderness - Neurological Exam Neurological exam: Present: alert, oriented X3, CN II-XII intact - Psychiatric Psychiatric exam: Present: normal affect, normal mood, agitated, flat affect - Skin Skin exam: Present: warm, dry, intact, normal color, other (The left inner thigh there is a healed abscess and on the right inner thigh there is what also appears to be a healed abscess is no erythema or drainage noted) Course Course Narrative: Patient was placed in examination room and history of physical was obtained. Nurse's notes reviewed Patient states that she has been hearing voices although they have not been telling her in a specific to do Patient White cell count is elevated to 18,000 but her white cell count does run high for her. It is not as high as 16-17,000 the past year. Examination of her skin does not reveal any obvious lesions or cellulitis. She denies any abdominal pain, nausea, vomiting, diarrhea or sore throat headache blurry vision and states she has not been sick. Her urine did not show any infection. Her heart rate was noted to be elevated when she arrived but t hat was because she was agitated and shortly afterwards her heart rate was normal. I personally checked it for my exam and it was 87 bpm. - Reevaluation(s) Reevaluation #1: Patient is resting comfortably. Time: 01:00 Reevaluation #2: Patient is resting comfortably. We are awaiting the final word from behavioral medicine 1A for acceptance Time: 02:00 Vital Signs Temperature 98.3 F 03/02/19 22:22 Pulse Rate 121 03/02/19 22:22 Respiratory Rate 16 03/02/19 22:22 Blood Pressure 151/74 03/02/19 22:22 O2 Sat by Pulse Oximetry 95 03/02/19 22:22 Temperature 98.3 F 03/02/19 22:22 Pulse Rate 99 03/03/19 02:30 Respiratory Rate 17 03/03/19 03:37 Blood Pressure 144/74 03/03/19 03:37 O2 Sat by Pulse Oximetry 95 03/02/19 22:22 Oxygen Delivery Oxygen Delivery Room Air Psych - Lab Data Result diagrams: 03/02/19 22:47 03/02/19 22:47 Lab Results 03/02/19 03/02/19 03/02/19 Range/Units 22:38 22:38 22:38 WBC (4.3-11.1) K/mcL RBC (3.82-4.97) M/mcL Hgb (11.5-15.4) g/dL Hct (35.3-44.9) % MCV (83.0-100.0) fL MCH (28.0-33.3) pg MCHC (31.6-35.5) g/dL RDW (11.5-14.5) % Plt Count (140-400) K/mcL MPV (9.4-12.4) fL Immature Gran % (0-4) % Seg Neutrophils % % Lymphocytes % % Monocytes % % Eosinophils % % Basophils % % Neutrophils # (1.6-8.9) K/mcL Lymphocytes # (0.6-4.6) K/mcL Monocytes # (0.0-1.3) K/mcL Eosinophils # (0.0-0.6) K/mcL Basophils # (0.0-0.2) K/mcL Sodium (136-145) mEq/L Potassium (3.5-5.1) mEq/L Chloride (98-107) mEq/L Carbon Dioxide (23-29) mEq/L BUN (6-20) mg/dL Creatinine (0.60-1.20) mg/dL Est GFR ( Amer) (> 60) Est GFR (Non-Af Amer) (> 60) BUN/Creatinine Ratio (6-26) Glucose (70-105) mg/dL Calculated Osmolality (280-300) Calcium (8.6-10.3) mg/dL Urine Color Yellow (Yellow) Urine Clarity Clear (Clear) Urine pH 6.0 (5.0-8.0) pH Units Ur Specific [place] 1.008 L (1.010-1.025) Urine Protein Negative (Neg-Trace) mg/dL Urine Glucose (UA) Normal (Normal) mg/dL Urine Ketones Negative (Negative) mg/dL Urine Blood Negative (Negative) Urine Nitrite Negative (Negative) Urine Bilirubin Negative (Negative) Urine Urobilinogen Normal (Normal) mg/dL Ur Leukocyte Esterase Negative (Negative) Urine Test Negative (Negative) Salicylates (15.0-30.0) mg/dL Urine Opiates Screen Negative (Jlwnhk=310) ng/mL Ur Buprenorphine Scrn Negative (Cutoff=5) ng/mL Acetaminophen (10-20) mcg/mL Ur Barbiturates Screen Negative (Fbdxah=617) ng/mL Ur Phencyclidine Scrn Negative (Cutoff=25) ng/mL Ur Amphetamines Screen Negative (Kvqrnk=6192) ng/mL U Benzodiazepines Scrn Negative (Mikwst=072) ng/mL Urine Cocaine Screen Negative (Cutoff= 300) ng/mL U Marijuana (THC) Screen Negative (Cutoff = 50) ng/mL Ur Drug Screen Interp See Below Ethyl Alcohol (Less than 10) mg/dL 03/02/19 03/02/19 Range/Units 22:47 22:47 WBC 18.1 H (4.3-11.1) K/mcL RBC 4.17 (3.82-4.97) M/mcL Hgb 12.1 (11.5-15.4) g/dL Hct 36.8 (35.3-44.9) % MCV 88.2 (83.0-100.0) fL MCH 29.0 (28.0-33.3) pg MCHC 32.9 (31.6-35.5) g/dL RDW 16.4 H (11.5-14.5) % Plt Count 494 H (140-400) K/mcL MPV 9.1 L (9.4-12.4) fL Immature Gran % 0.7 (0-4) % Seg Neutrophils % 73.4 % Lymphocytes % 18.3 % Monocytes % 6.2 % Eosinophils % 1.2 % Basophils % 0.2 % Neutrophils # 13.3 H (1.6-8.9) K/mcL Lymphocytes # 3.3 (0.6-4.6) K/mcL Monocytes # 1.1 (0.0-1.3) K/mcL Eosinophils # 0.2 (0.0-0.6) K/mcL Basophils # 0.0 (0.0-0.2) K/mcL Sodium 135 L (136-145) mEq/L Potassium 3.5 (3.5-5.1) mEq/L Chloride 106 (98-107) mEq/L Carbon Dioxide 21 L (23-29) mEq/L BUN 5 L (6-20) mg/dL Creatinine 0.72 (0.60-1.20) mg/dL Est GFR ( Amer) > 60 (> 60) Est GFR (Non-Af Amer) > 60 (> 60) BUN/Creatinine Ratio 7 (6-26) Glucose 101 (70-105) mg/dL Calculated Osmolality 277 L (280-300) Calcium 8.5 L (8.6-10.3) mg/dL Urine Color (Yellow) Urine Clarity (Clear) Urine pH (5.0-8.0) pH Units Ur Specific [place] (1.010-1.025) Urine Protein (Neg-Trace) mg/dL Urine Glucose (UA) (Normal) mg/dL Urine Ketones (Negative) mg/dL Urine Blood (Negative) Urine Nitrite (Negative) Urine Bilirubin (Negative) Urine Urobilinogen (Normal) mg/dL Ur Leukocyte Esterase (Negative) Urine Test (Negative) Salicylates < 2.5 L (15.0-30.0) mg/dL Urine Opiates Screen (Ykshtt=497) ng/mL Ur Buprenorphine Scrn (Cutoff=5) ng/mL Acetaminophen < 10 L (10-20) mcg/mL Ur Barbiturates Screen (Vtekrp=685) ng/mL Ur Phencyclidine Scrn (Cutoff=25) ng/mL Ur Amphetamines Screen (Zholud=3254) ng/mL U Benzodiazepines Scrn (Fucxjb=754) ng/mL Urine Cocaine Screen (Cutoff= 300) ng/mL U Marijuana (THC) Screen (Cutoff = 50) ng/mL Ur Drug Screen Interp Ethyl Alcohol < 10 (Less than 10) mg/dL Psychiatric Medical Clearance - Medical Clearance Checklist Medical History: No Social History Section defined Current Vitals: Last Vital Signs Temp 98.3 F 03/02/19 22:22 Pulse 99 03/03/19 02:30 Resp 17 03/03/19 03:37 BP 144/74 03/03/19 03:37 Pulse Ox 95 03/02/19 22:22 Psychiatric Lab Panel: Drug Levels and Toxicity 03/02/19 03/02/19 22:38 22:47 Urine Opiates Screen Negative Acetaminophen < 10 L Ur Barbiturates Screen Negative Ur Phencyclidine Scrn Negative Ur Amphetamines Screen Negative U Benzodiazepines Scrn Negative Urine Cocaine Screen Negative U Marijuana (THC) Screen Negative Ethyl Alcohol < 10 Abnormal Labs: Abnormal lab results WBC 18.1 K/mcL (4.3-11.1) H 03/02/19 22:47 RDW 16.4 % (11.5-14.5) H 03/02/19 22:47 Plt Count 494 K/mcL (140-400) H 03/02/19 22:47 MPV 9.1 fL (9.4-12.4) L 03/02/19 22:47 13.3 K/mcL (1.6-8.9) H 03/02/19 22:47 Sodium 135 mEq/L (136-145) L 03/02/19 22:47 Carbon Dioxide 21 mEq/L (23-29) L 03/02/19 22:47 BUN 5 mg/dL (6-20) L 03/02/19 22:47 277 (280-300) L 03/02/19 22:47 Calcium 8.5 mg/dL (8.6-10.3) L 03/02/19 22:47 Ur Specific [place] 1.008 (1.010-1.025) L 03/02/19 22:38 Salicylates < 2.5 mg/dL (15.0-30.0) L 03/02/19 22:47 Acetaminophen < 10 mcg/mL (10-20) L 03/02/19 22:47 Statement of Medical Clearance: I have evaluated the patient, reviewed diagnostic information, and certify that the patient's medical condition is sufficiently stable that transfer to the psychiatric unit does not pose a significant risk of deterioration.
[2019-03-02 23:16] LABS: Acetaminophen < 10 mcg/mL (10-20); BUN/Creatinine Ratio 7 (6-26); Blood Urea Nitrogen 5 mg/dL (6-20); Calcium 8.5 mg/dL (8.6-10.3); Carbon Dioxide 21 mEq/L (23-29); Chloride 106 mEq/L (98-107); Ethanol < 10 mg/dL (Less than 10); Glucose 101 mg/dL (70-105); Osmolality,Calculated 277 (280-300); Potassium 3.5 mEq/L (3.5-5.1); Salicylate < 2.5 mg/dL (15.0-30.0); Sodium 135 mEq/L (136-145); eGFR For African Americans > 60 (> 60); eGFR For Non-African Americans > 60 (> 60)
[2019-03-02 23:23] LABS: Bilirubin,Urine Negative (Negative); Blood,Urine Negative (Negative); Clarity,Urine Clear (Clear); Color,Urine Yellow (Yellow); Glucose,Urine (UA) Normal (Normal); Ketones,Urine Negative (Negative); Protein,Urine Negative (Neg-Trace); Specific Gravity,Urine 1.008 (1.010-1.025); Urobilinogen,Urine Normal (Normal)
[2019-03-02 23:24] LABS: Leukocyte Esterase,Urine Negative (Negative); Nitrite,Urine Negative (Negative)
[2019-03-03] MEDS ORDERED: Mag Hydrox/Al Hydrox/Simeth 30 ML UDC PO PRN (04:34)
[2019-03-03] MEDS ORDERED: MOM Conc 10 ML UD.LIQ PO PRN (04:34)
[2019-03-03] MEDS ORDERED: Haloperidol Lactate 5 MG/ML VIAL IM PRN (04:34)
[2019-03-03] MEDS ORDERED: traZODone 50 MG TABLET PO PRN (04:34)
[2019-03-03] MEDS ORDERED: *HR* LORazepam 2 MG/ML VIAL IM PRN (04:34)
[2019-03-03] MEDS ORDERED: *HR* LORazepam 1 MG TABLET PO PRN (04:34)
--- NOTE | 2019-03-03 09:10 | Psychiatry History & Physical ---
Date of Encounter: 03/03/19 Time of Encounter: 08:30 History of Present Illness Patient Stated Chief Complaint: I need to be saved Medicare Admission Attestation: For traditional Medicare patients the provided hospital inpatient services are reasonable and necessary and in the case of services not specified as inpatient-only under 42 CFR 419.22 (n), that they are appropriately provided as inpatient services in accordance 42 CFR 412.3. For Critical Access Hospital the patient may reasonably be expected to be discharged or transferred to a hospital within 96 hours after admission to the Critical Access Hospital. Admitted From: Emergency Dept Plans for Post Hospital Care: Home History of Present Illness: Ms. Agee is a 33 year old female with history of schizophrenia and psychosis presents the emergency room for an evaluation. She states that she has been hearing voices and seeing bugs and animals all around her as well as flies and other insects coming from her head. She has had this in the past. She denies any suicidal ideations at this time but says she would probably be better off than living like this. She says there are numerous people trying to kill her. She appears to not have been for many days and is very malodorous. She says she has not been eating because of the poison in the food. She reports hearing people whispering about her. Past Med Surg Social Fam HX - Past Medical History Medical history: no medical history, other - Past Psychiatric History Psychiatric history: Reports: schizophrenia, previous psychiatric hospitalization. Denies: prior suicide attempt Past psychiatric history details: She has had numerous prior psychiatric hospitalizations including multiple on this unit. She has been hospitalized at the [facility] as well as in the past. It is unclear if she has followed through with her outpatient linkage. She denies prior suicide attempts. Family psychiatric history: No Family History of Suicide: None - Past Surgical History Surgical History: no surgical history - Social History Smoking Status: Current every day smoker Smokeless Tobacco Status: No Alcohol use: none Drug use: none - Family History Mother Hx Family Neurologic Disorders: Yes (CVA) Medications & Allergies hydrOXYzine pamoate [Vistaril] 25 mg PO TID PRN #60 capsule 12/23/18 [Rx] Abilify Q4W 03/03/19 [History] BuPROPion [Wellbutrin] 100 mg PO HS 03/03/19 [History] Cogentin Q4W 03/03/19 [History] Allergy/AdvReac Type Severity Reaction Status Date / Time Penicillins Allergy See Verified 03/02/19 22:22 Comments red dye Allergy Hives Verified 03/02/19 22:22 psych meds Allergy Vomiting Uncoded 03/02/19 22:22 Review of Systems Constitutional: Reports: weakness Eyes: Denies: eye pain Ears, Nose, Throat: Denies: ear pain Cardiovascular: Denies: chest pain Respiratory: Denies: cough Gastrointestinal: Denies: abdominal pain Genitourinary female: Denies: urgency Musculoskeletal: Denies: back pain Integumentary: Denies: rash Neurological: Denies: headache Psychiatric: Reports: abnormal sleep pattern, change in appetite, homicidal ideation, auditory hallucinations, visual hallucinations, confusion Endocrine: Reports: fatigue Hematologic/Lymphatic: Denies: easy bleeding Allergic/Immunologic: Denies: facial swelling Exam - HEENT Head exam IM: Present: atraumatic Eye exam IM: Present: EOMI ENT exam IM: Present: mucous membranes moist - Neurological Neurological exam: Present: CN II-XII intact - Respiratory Respiratory exam IM: Absent: respiratory distress - GI/Abdominal GI/Abdominal exam IM: Present: no peritoneal signs - Extremities Extremities exam IM: Present: full ROM - Skin Skin exam IM: Present: abrasion - Constitutional Vitals: Temp Pulse Resp BP Pulse Ox 98.3 F 99 17 144/74 95 03/02/19 22:22 03/03/19 02:30 03/03/19 03:37 03/03/19 03:37 03/02/19 22:22 General appearance: disheveled, malodorous - Musculoskeletal Gait: slow Station: stooped Strength & Tone: mild weakness - Psychiatric Patient Orientation: Yes Person Level of alertness: Alert Behavior: uncooperative, guarded, suspicious Psychomotor activity: Slowed Eye Contact: Fleeting Contact Mood Description: Anxious Affect description: blunted Speech Volume: Soft/Quiet Speech pattern: slowed, impoverished Language & Vocabulary: limited Thought Process: Thought Blocking Thought Content: Yes Homicidal ideation, Yes Paranoid delusion Perceptual Disturbances: Yes Auditory hallucinations, Yes Visual hallucinations Attention Span Ability: Unable to Focus, Unable to Sustain Attention Memory Description: Immediate Impaired, Recent Impaired, Remote Impaired Patient Reliability: Questionable Historian Fund of knowledge: Yes average Intelligence Estimate: Average Judgment: Poor Insight: None Results - Drug Levels and Toxicology Drug Levels and Toxicology: Drug Levels and Toxicity 03/02/19 03/02/19 22:38 22:47 Urine Opiates Screen Negative Acetaminophen < 10 L Ur Barbiturates Screen Negative Ur Phencyclidine Scrn Negative Ur Amphetamines Screen Negative U Benzodiazepines Scrn Negative Urine Cocaine Screen Negative U Marijuana (THC) Screen Negative Ethyl Alcohol < 10 - Labs Labs: Laboratory Last Values WBC 18.1 K/mcL (4.3-11.1) H 03/02/19 22:47 RBC 4.17 M/mcL (3.82-4.97) 03/02/19 22:47 Hgb 12.1 g/dL (11.5-15.4) 03/02/19 22:47 Hct 36.8 % (35.3-44.9) 03/02/19 22:47 MCV 88.2 fL (83.0-100.0) 03/02/19 22:47 MCH 29.0 pg (28.0-33.3) 03/02/19 22:47 MCHC 32.9 g/dL (31.6-35.5) 03/02/19 22:47 RDW 16.4 % (11.5-14.5) H 03/02/19 22:47 Plt Count 494 K/mcL (140-400) H 03/02/19 22:47 MPV 9.1 fL (9.4-12.4) L 03/02/19 22:47 Immature Gran % 0.7 % (0-4) 03/02/19 22:47 Seg Neutrophils % 73.4 % 03/02/19 22:47 18.3 % 03/02/19 22:47 6.2 % 03/02/19 22:47 1.2 % 03/02/19 22:47 0.2 % 03/02/19 22:47 13.3 K/mcL (1.6-8.9) H 03/02/19 22:47 3.3 K/mcL (0.6-4.6) 03/02/19 22:47 1.1 K/mcL (0.0-1.3) 03/02/19 22:47 0.2 K/mcL (0.0-0.6) 03/02/19 22:47 0.0 K/mcL (0.0-0.2) 03/02/19 22:47 Sodium 135 mEq/L (136-145) L 03/02/19 22:47 Potassium 3.5 mEq/L (3.5-5.1) 03/02/19 22:47 Chloride 106 mEq/L (98-107) 03/02/19 22:47 Carbon Dioxide 21 mEq/L (23-29) L 03/02/19 22:47 BUN 5 mg/dL (6-20) L 03/02/19 22:47 0.72 mg/dL (0.60-1.20) 03/02/19 22:47 Est GFR ( Amer) > 60 (> 60) 03/02/19 22:47 Est GFR (Non-Af Amer) > 60 (> 60) 03/02/19 22:47 7 (6-26) 03/02/19 22:47 Glucose 101 mg/dL (70-105) 03/02/19 22:47 277 (280-300) L 03/02/19 22:47 Calcium 8.5 mg/dL (8.6-10.3) L 03/02/19 22:47 Yellow (Yellow) 03/02/19 22:38 Clear (Clear) 03/02/19 22:38 6.0 pH Units (5.0-8.0) 03/02/19 22:38 Ur Specific [place] 1.008 (1.010-1.025) L 03/02/19 22:38 Negative mg/dL (Neg-Trace) 03/02/19 22:38 Normal mg/dL (Normal) 03/02/19 22:38 Negative mg/dL (Negative) 03/02/19 22:38 Negative (Negative) 03/02/19 22:38 Negative (Negative) 03/02/19 22:38 Negative (Negative) 03/02/19 22:38 Normal mg/dL (Normal) 03/02/19 22:38 Ur Leukocyte Esterase Negative (Negative) 03/02/19 22:38 Negative (Negative) 03/02/19 22:38 Salicylates < 2.5 mg/dL (15.0-30.0) L 03/02/19 22:47 Negative ng/mL (Yfcjnb=060) 03/02/19 22:38 Ur Buprenorphine Scrn Negative ng/mL (Cutoff=5) 03/02/19 22:38 Acetaminophen < 10 mcg/mL (10-20) L 03/02/19 22:47 Ur Barbiturates Screen Negative ng/mL (Icjbtr=509) 03/02/19 22:38 Ur Phencyclidine Scrn Negative ng/mL (Cutoff=25) 03/02/19 22:38 Ur Amphetamines Screen Negative ng/mL (Maphcx=5048) 03/02/19 22:38 U Benzodiazepines Scrn Negative ng/mL (Jemzah=732) 03/02/19 22:38 Negative ng/mL (Cutoff= 300) 03/02/19 22:38 U Marijuana (THC) Screen Negative ng/mL (Cutoff = 50) 03/02/19 22:38 Ur Drug Screen Interp See Below 03/02/19 22:38 Ethyl Alcohol < 10 mg/dL (Less than 10) 03/02/19 22:47 Assessment and Plan (1) Chronic schizophrenia Current visit: Yes Status: Acute Plan: Admit inpatient for safety and stabilization, Close observation, Suicide Precautions per unit protocol, Encourage participation in unit milieu, Group Therapy, Monitor sleep, Monitor appetite Additional Plan: Patient refusing to take Abilify or perphenazine which she has been on the past. She was agreeable to trying Trilafon 4 mg by mouth twice a day. She is also r efusing her Wellbutrin or Cogentin. Encourage group attendance. Risks, benefits, side effects, alternatives discussed w/pt: Yes Patient agreeable to treatment: Yes Plans for Post Hospital Care: Home Estimated Length of Stay (Days): 5
[2019-03-03] MEDS: hydrOXYzine pamoate 25 MG CAPSULE PO PRN (09:59)
[2019-03-03] MEDS: Perphenazine 2 MG TABLET PO SCH ×2 (09:59→20:21)
[2019-03-03] MEDS: Ibuprofen 400 MG TABLET PO PRN (20:23)
[2019-03-04] MEDS: Perphenazine 2 MG TABLET PO SCH ×2 (08:30→20:00)
[2019-03-04] MEDS: hydrOXYzine pamoate 25 MG CAPSULE PO PRN ×2 (08:30→20:00)
--- NOTE | 2019-03-04 09:24 | Psychiatry Progress Note ---
Date of Encounter: 03/04/19 Time of Encounter: 08:30 Subjective Interval history: Patient continues to be very paranoid and bizarre. She is paranoid about [place] trying to wipe [place] the map. She also says she needs to contact [employer] Villarreal because they have billions of dollars in her name but people keep trying to steal it which is why she cannot go to [facility]. She is responding to internal stimuli. She did take the Trilafon yesterday and is willing to take Abilify with that she has frequently required more than one antipsychotic in the past. Review of Systems Psychiatric: Reports: abnormal sleep pattern, change in appetite, auditory hallucinations, visual hallucinations, confusion Results - Vital Signs Vital Signs: Temp Pulse Resp BP Pulse Ox 97.8 F 106 18 107/69 99 03/04/19 08:50 03/04/19 08:50 03/04/19 08:50 03/04/19 08:50 03/04/19 08:50 Assessment and Plan (1) Chronic schizophrenia Current visit: Yes Status: Acute Plan: Continue hospitalization, Close observation, Suicide Precautions per unit protocol, Encourage participation in unit milieu, Group Therapy, Monitor sleep, Monitor appetite Additional Plan: Had Abilify 10 mg by mouth every morning for psychosis. Encourage group attendance. Therapists working on discharge planning. Risks, benefits, side effects, alternatives discussed w/pt: Yes Patient agreeable to treatment: Yes Consult Discharge Plan - Plan Referrals: NONE,PCP [Primary Care Provider] - Psychiatry Exam - Constitutional Vitals: Temp Pulse Resp BP Pulse Ox 97.8 F 106 18 107/69 99 03/04/19 08:50 03/04/19 08:50 03/04/19 08:50 03/04/19 08:50 03/04/19 08:50 General appearance: age & developmentally appropriate, disheveled - Musculoskeletal Gait: slow Station: stooped Strength & Tone: normal for patient - Psychiatric Patient Orientation: Yes Person, Yes Time, Yes Place, No Circumstance Level of alertness: Alert Behavior: guarded, suspicious Psychomotor activity: Slowed Eye Contact: Fleeting Contact Mood Description: Anxious Patient description of mood: Worried Affect description: anxious Speech Volume: Soft/Quiet Speech pattern: impoverished Language & Vocabulary: limited Thought Process: Thought Blocking Thought Content: No Suicidal ideation, No Homicidal ideation Perceptual Disturbances: Yes Auditory hallucinations, Yes Visual hallucinations Attention Span Ability: Unable to Focus, Unable to Sustain Attention Memory Description: Immediate Impaired, Recent Impaired, Remote Impaired Patient Reliability: Not Reliable Historian Fund of knowledge: Yes average Intelligence Estimate: Average Judgment: Poor Insight: None
[2019-03-04] MEDS: ARIPiprazole 10 MG TABLET PO SCH (11:00)
[2019-03-04] MEDS: Ibuprofen 400 MG TABLET PO PRN (20:00)
[2019-03-05] MEDS: Perphenazine 2 MG TABLET PO SCH ×2 (11:57→20:45)
[2019-03-05] MEDS: ARIPiprazole 10 MG TABLET PO SCH (11:57)
--- NOTE | 2019-03-05 12:17 | Psychiatry Progress Note ---
Date of Encounter: 03/05/19 Time of Encounter: 11:30 Subjective Interval history: "I just need all of you psychiatrists to leave me alone." Patient very irritable. She says we keep bringing her in here and pumping her full of medications. She is threatening and hostile with me. Saying she w ill"get even." Still grandiose about having millions of dollars. Responding to internal stimuli. Command auditory hallucinations to "you don't want to know." Refusing trilafon. Review of Systems Psychiatric: Reports: abnormal sleep pattern, change in appetite, homicidal ideation, auditory hallucinations, visual hallucinations, confusion Results - Vital Signs Vital Signs: Temp Pulse Resp BP Pulse Ox 98.1 F 117 16 124/84 97 03/05/19 09:00 03/05/19 09:00 03/05/19 09:00 03/05/19 09:00 03/05/19 09:00 Assessment and Plan (1) Chronic schizophrenia Current visit: Yes Status: Acute Plan: Continue hospitalization, Close observation, Suicide Precautions per unit protocol, Encourage participation in unit milieu, Group Therapy, Monitor sleep, Monitor appetite Additional Plan: Discussed long acting injectable. She is refusing. Encourage compliance with meds. Encourage groups. Risks, benefits, side effects, alternatives discussed w/pt: Yes Patient agreeable to treatment: Yes Consult Discharge Plan - Plan Referrals: NONE,PCP [Primary Care Provider] - Psychiatry Exam - Constitutional Vitals: Temp Pulse Resp BP Pulse Ox 98.1 F 117 16 124/84 97 03/05/19 09:00 03/05/19 09:00 03/05/19 09:00 03/05/19 09:00 03/05/19 09:00 General appearance: disheveled - Musculoskeletal Gait: slow Station: stooped Strength & Tone: mild weakness - Psychiatric Patient Orientation: Yes Person, Yes Time, Yes Place Level of alertness: Alert Behavior: hostile, suspicious Psychomotor activity: Normal Eye Contact: Prolonged Contact Mood Description: Angry Patient description of mood: pissed Affect description: congruent with mood Speech Volume: Normal Speech pattern: normal rate Language & Vocabulary: limited Thought Process: Thought Blocking Thought Content: Yes Homicidal ideation, Yes Preoccupation, Yes Grandiose delusion Perceptual Disturbances: Yes Auditory hallucinations, Yes Visual hallucinations Attention Span Ability: Unable to Focus, Unable to Sustain Attention Memory Description: Immediate Impaired, Recent Impaired, Remote Impaired Patient Reliability: Not Reliable Historian Fund of knowledge: Yes average Intelligence Estimate: Average Judgment: Poor Insight: None
[2019-03-05] MEDS: hydrOXYzine pamoate 25 MG CAPSULE PO PRN (20:44)
[2019-03-06] MEDS: ARIPiprazole 10 MG TABLET PO SCH (08:57)
[2019-03-06] MEDS: Perphenazine 2 MG TABLET PO SCH ×2 (08:58→22:19)
--- NOTE | 2019-03-06 09:05 | Psychiatry Progress Note ---
Date of Encounter: 03/06/19 Time of Encounter: 08:40 Subjective Interval history: Patient continues to refuse the Trilafon however she is taking the Abilify. I will increase Abilify to 20 mg by mouth every morning. She continues to be very paranoid and grandiose talks about having millions of dollars and people trying to kill her for it. She is agitated and threatening at times. She is not caring for her activities of daily living and has very poor hygiene and has not showered. She is eating. She reports auditory and visual hallucinations that are command at times but will not tell us what they are telling her. Reports some homicidal ideations towards an unnamed target. Review of Systems Psychiatric: Reports: abnormal sleep pattern, change in appetite, homicidal ideation, auditory hallucinations, visual hallucinations, confusion, irrita bility Results - Vital Signs Vital Signs: Temp Pulse Resp BP Pulse Ox 98.5 F 104 18 121/74 97 03/05/19 19:56 03/05/19 19:56 03/05/19 19:56 03/05/19 19:56 03/05/19 19:56 Assessment and Plan (1) Chronic schizophrenia Current visit: Yes Status: Acute Plan: Continue hospitalization, Close observation, Suicide Precautions per unit protocol, Encourage participation in unit milieu, Group Therapy, Monitor sleep, Monitor appetite Additional Plan: Increase Abilify to 20 mg by mouth every morning. I would like to start Depakote however she is refusing this at this time. Encourage group attendance. Therapists working on discharge planning. Risks, benefits, side effects, alternatives discussed w/pt: Yes Patient agreeable to treatment: Yes Consult Discharge Plan - Plan Referrals: NONE,PCP [Primary Care Provider] - Psychiatry Exam - Constitutional Vitals: Temp Pulse Resp BP Pulse Ox 98.5 F 104 18 121/74 97 03/05/19 19:56 03/05/19 19:56 03/05/19 19:56 03/05/19 19:56 03/05/19 19:56 General appearance: disheveled, malodorous - Musculoskeletal Gait: slow Station: stooped Strength & Tone: normal for patient - Psychiatric Patient Orientation: Yes Person, Yes Time, Yes Place, No Circumstance Level of alertness: Alert Behavior: hostile, guarded, suspicious Psychomotor activity: Agitated Eye Contact: Prolonged Contact Mood Description: Labile, Irritable Patient description of mood: Pissed Affect description: labile Speech Volume: Loud Speech pattern: excessive Language & Vocabulary: limited Thought Process: Tangential Thought Content: Yes Homicidal ideation, Yes Paranoid delusion, Yes Grandiose delusion Perceptual Disturbances: Yes Auditory hallucinations Attention Span Ability: Unable to Focus, Unable to Sustain Attention Memory Description: Immediate Impaired, Recent Impaired, Remote Impaired Patient Reliability: Questionable Historian Fund of knowledge: Yes average Intelligence Estimate: Average Judgment: Poor Insight: None
[2019-03-06] MEDS: hydrOXYzine pamoate 25 MG CAPSULE PO PRN (20:40)
[2019-03-07] MEDS ORDERED: ARIPiprazole 10 MG TABLET PO SCH (09:00)
--- NOTE | 2019-03-07 09:30 | Discharge Summary ---
Date of Encounter: 03/07/19 Time of Encounter: 07:20 Diagnosis - Discharge Diagnosis (1) Chronic schizophrenia Status: Acute Medications - Discharge Medications Prescriptions: ARIPiprazole [Abilify] 20 mg PO DAILY #30 tablet traZODone [TraZODone] 50 mg PO HS PRN #15 tablet PRN Reason: Insomnia hydrOXYzine pamoate [Vistaril] 25 mg PO TID PRN #45 capsule PRN Reason: Anxiety Docusate Sodium [Dok] 100 mg PO QAM 03/03/19 [History] Loratadine [Claritin] 10 mg PO DAILY 03/03/19 [History] fluPHENAZine HCl [Fluphenazine HCl] 5 mg PO QAM 03/03/19 [History] fluPHENAZine HCl [Fluphenazine HCl] 10 mg PO HS 03/03/19 [History] ARIPiprazole [Abilify] 20 mg PO DAILY #30 tablet 03/07/19 [Rx] hydrOXYzine pamoate [Vistaril] 25 mg PO TID PRN #45 capsule 03/07/19 [Rx] traZODone [TraZODone] 50 mg PO HS PRN #15 tablet 03/07/19 [Rx] Allergy/AdvReac Type Severity Reaction Status Date / Time Penicillins Allergy See Verified 03/03/19 12:23 Comments red dye Allergy Hives Verified 03/02/19 22:22 psych meds Allergy Vomiting Uncoded 03/02/19 22:22 Results Procedures and tests throughout hospitalization: Completed Lab Orders Category Date Time Status Acetaminophen Stat Lab 03/02/19 22:47 Completed Basic Metabolic Panel Stat Lab 03/02/19 22:47 Completed Complete Blood Count [HEME] Stat Lab 03/02/19 22:47 Completed Drug Screen, Urine [UCHEM] Stat Lab 03/02/19 22:38 Completed Ethanol Stat Lab 03/02/19 22:47 Completed Test Result, Urine [URIN] Stat Lab 03/02/19 22:38 Completed Salicylate Stat Lab 03/02/19 22:47 Completed Urinalysis reflex Microscopic [URIN] Stat Lab 03/02/19 22:38 Completed Lab Results 03/02/19 03/02/19 03/02/19 Range/Units 22:38 22:38 22:38 WBC (4.3-11.1) K/mcL RBC (3.82-4.97) M/mcL Hgb (11.5-15.4) g/dL Hct (35.3-44.9) % MCV (83.0-100.0) fL MCH (28.0-33.3) pg MCHC (31.6-35.5) g/dL RDW (11.5-14.5) % Plt Count (140-400) K/mcL MPV (9.4-12.4) fL Immature Gran % (0-4) % Seg Neutrophils % % Lymphocytes % % Monocytes % % Eosinophils % % Basophils % % Neutrophils # (1.6-8.9) K/mcL Lymphocytes # (0.6-4.6) K/mcL Monocytes # (0.0-1.3) K/mcL Eosinophils # (0.0-0.6) K/mcL Basophils # (0.0-0.2) K/mcL Sodium (136-145) mEq/L Potassium (3.5-5.1) mEq/L Chloride (98-107) mEq/L Carbon Dioxide (23-29) mEq/L BUN (6-20) mg/dL Creatinine (0.60-1.20) mg/dL Est GFR ( Amer) (> 60) Est GFR (Non-Af Amer) (> 60) BUN/Creatinine Ratio (6-26) Glucose (70-105) mg/dL Calculated Osmolality (280-300) Calcium (8.6-10.3) mg/dL Urine Color Yellow (Yellow) Urine Clarity Clear (Clear) Urine pH 6.0 (5.0-8.0) pH Units Ur Specific [place] 1.008 L (1.010-1.025) Urine Protein Negative (Neg-Trace) mg/dL Urine Glucose (UA) Normal (Normal) mg/dL Urine Ketones Negative (Negative) mg/dL Urine Blood Negative (Negative) Urine Nitrite Negative (Negative) Urine Bilirubin Negative (Negative) Urine Urobilinogen Normal (Normal) mg/dL Ur Leukocyte Esterase Negative (Negative) Urine Test Negative (Negative) Salicylates (15.0-30.0) mg/dL Urine Opiates Screen Negative (Eypunu=540) ng/mL Ur Buprenorphine Scrn Negative (Cutoff=5) ng/mL Acetaminophen (10-20) mcg/mL Ur Barbiturates Screen Negative (Sxhbhe=370) ng/mL Ur Phencyclidine Scrn Negative (Cutoff=25) ng/mL Ur Amphetamines Screen Negative (Fyjjdu=4607) ng/mL U Benzodiazepines Scrn Negative (Gpagzv=134) ng/mL Urine Cocaine Screen Negative (Cutoff= 300) ng/mL U Marijuana (THC) Screen Negative (Cutoff = 50) ng/mL Ur Drug Screen Interp See Below Ethyl Alcohol (Less than 10) mg/dL 03/02/19 03/02/19 Range/Units 22:47 22:47 WBC 18.1 H (4.3-11.1) K/mcL RBC 4.17 (3.82-4.97) M/mcL Hgb 12.1 (11.5-15.4) g/dL Hct 36.8 (35.3-44.9) % MCV 88.2 (83.0-100.0) fL MCH 29.0 (28.0-33.3) pg MCHC 32.9 (31.6-35.5) g/dL RDW 16.4 H (11.5-14.5) % Plt Count 494 H (140-400) K/mcL MPV 9.1 L (9.4-12.4) fL Immature Gran % 0.7 (0-4) % Seg Neutrophils % 73.4 % Lymphocytes % 18.3 % Monocytes % 6.2 % Eosinophils % 1.2 % Basophils % 0.2 % Neutrophils # 13.3 H (1.6-8.9) K/mcL Lymphocytes # 3.3 (0.6-4.6) K/mcL Monocytes # 1.1 (0.0-1.3) K/mcL Eosinophils # 0.2 (0.0-0.6) K/mcL Basophils # 0.0 (0.0-0.2) K/mcL Sodium 135 L (136-145) mEq/L Potassium 3.5 (3.5-5.1) mEq/L Chloride 106 (98-107) mEq/L Carbon Dioxide 21 L (23-29) mEq/L BUN 5 L (6-20) mg/dL Creatinine 0.72 (0.60-1.20) mg/dL Est GFR ( Amer) > 60 (> 60) Est GFR (Non-Af Amer) > 60 (> 60) BUN/Creatinine Ratio 7 (6-26) Glucose 101 (70-105) mg/dL Calculated Osmolality 277 L (280-300) Calcium 8.5 L (8.6-10.3) mg/dL Urine Color (Yellow) Urine Clarity (Clear) Urine pH (5.0-8.0) pH Units Ur Specific [place] (1.010-1.025) Urine Protein (Neg-Trace) mg/dL Urine Glucose (UA) (Normal) mg/dL Urine Ketones (Negative) mg/dL Urine Blood (Negative) Urine Nitrite (Negative) Urine Bilirubin (Negative) Urine Urobilinogen (Normal) mg/dL Ur Leukocyte Esterase (Negative) Urine Test (Negative) Salicylates < 2.5 L (15.0-30.0) mg/dL Urine Opiates Screen (Eypror=274) ng/mL Ur Buprenorphine Scrn (Cutoff=5) ng/mL Acetaminophen < 10 L (10-20) mcg/mL Ur Barbiturates Screen (Zrzhyv=303) ng/mL Ur Phencyclidine Scrn (Cutoff=25) ng/mL Ur Amphetamines Screen (Ezxjjy=1917) ng/mL U Benzodiazepines Scrn (Yzdkms=919) ng/mL Urine Cocaine Screen (Cutoff= 300) ng/mL U Marijuana (THC) Screen (Cutoff = 50) ng/mL Ur Drug Screen Interp Ethyl Alcohol < 10 (Less than 10) mg/dL Provider Date of admission: 03/03/19 09:13 Primary care physician: PCP NONE Discharging clinician: Dede Klein Psychiatry Exam - Constitutional Vitals: Temp Pulse Resp BP Pulse Ox 97.7 F 105 16 114/67 97 03/06/19 09:00 03/06/19 09:00 03/06/19 09:00 03/06/19 09:00 03/06/19 09:00 General appearance: age & developmentally appropriate, well-groomed, well- nourished - Musculoskeletal Gait: normal Station: relaxed Strength & Tone: normal for patient - Psychiatric Patient Orientation: Yes Person, Yes Time, Yes Place, Yes Circumstance Level of alertness: Alert Behavior: calm, talkative Psychomotor activity: Normal Eye Contact: Intense Contact Mood Description: Euthymic/stable Patient description of mood: Good Affect description: congruent with mood, full range Speech Volume: Normal Speech pattern: excessive Language & Vocabulary: consistent with education Thought Process: Circumstantial (less) Thought Content: No Suicidal ideation, No Homicidal ideation, Yes Grandiose delusion (less) Perceptual Disturbances: No Auditory hallucinations, No Visual hallucinations Attention Span Ability: Capable of Focused Attention Memory Description: Grossly Intact Patient Reliability: Reliable Historian Fund of knowledge: Yes abstraction ability, Yes aware of current events Intelligence Estimate: Average Judgment: Good Insight: Full Hospital Course Hospital course: Ms. Agee is a 33 year old female felt that her medication she had been taking were causing her extreme headaches and she wanted to change them. At first we tried Trilafon but she did not likely that made her feel. We then switched her to aripiprazole and titrated this up. She did well with this. We discussed switching her to a long-acting injectable however she has had this before and said she did not like it. She had capacity to make this medication decision. Her psychosis improved back to its baseline. I have seen her before and she always has some level of grandiose thinking and noncommand auditory hallucinations. She Back to the point of having no paranoia and just mild th oughts that she was somehow very important and could go on to make a lot of money in her life. She was hearing God's voice telling her positive things about herself but having no command auditory hallucinations and it was unclear if the voice of God was latter-day conviction or a true hallucination. She was no longer threatening or aggressive. He had improved.Patient was educated of diagnosis and the risk-benefit side effects of this alternative treatment options and was monitored for responsiveness and side effects. Mood anxiety sleep and appetite interest improved as did future orientation. Self-harm thoughts subsided, thinking cleared, psychosis resolved, and mood stabilized. Patient was able to attend both individual and group therapy sessions as well as meet with the psychiatrist daily and urged to discuss any medication or treatment issues or other concerns. The patient was educated primarily by verbal means about their diagnosis and manifestations in their life. The option for treatment including group and individual therapy programming was offered to the patient in addition to the use of medications with all their potential risks, benefits, and side effects as well as the risks of not taking medication and non-adhereance were discussed with the patient at length. The patient was given the opportunity to ask questions and was noted to participate in the treatment in the planning process. The patient felt ready and eager to be discharged from the inpatient psychiatric unit to continue on with treatment as an outpatient. The patient agreed that is they were safe for this disposition. The patient was considered to be able to participate in informed consent and decision making with respect to medical, legal, and financial issues of the time of discharge. At the time of discharge the patient adamantly denied any concerns for lethality including suicidal or homicidal thoughts ideations or plans and was future oriented toward ongoing mental health care, medical follow- up and sobriety. Her pink slip time was up and she did not meet criteria for probate as she had no suicidal or homicidal thoughts, ideations, or plans and was capable of caring for herself and not putting her rate of the rights of others in jeopardy. Time spent discussing smoking cessation with patient: 3 to 10 minutes Does patient wish to continue nicotine replacement upon disc: No - Time Spent with Patient Total time spent providing and/or coordinating discharge services: 20 Less than 30 minutes Specific discharge activities: Interval history reviewed. Available labs reviewed . Psychotherapy provided. Patient had an opportunity to ask questions and address concerns. Patient was in agreement with the treatment plan. The risks benefits and side effects of medications were discussed with the patient, including alternatives and treatment. The patient was educated on the abstaining from any alcohol or illicit substances, following up with all scheduled appointments, and taking all medications as prescribed. Assessment and Plan - Patient/Caregiver Discharge Instructions Activity: resume usual activities as tolerated Diet: regular diet Additional Instructions: Continue current medications. Follow up with outpatient mental health. Encourage continued therapy in a group or individual setting. The patient was discharged to home. - Follow up Plan Follow up with: NONE,PCP [Primary Care Provider] - Functional capacity at discharge: independent ambulation Overall status at discharge: Stable Disposition: Home, Self-Care Quality - Multiple Antipsychotics Patient discharged on 2 or more antipsychotic medications: No Procedures - Procedures Procedures: Medication Management, Crisis Stabilization, Supportive Therapy, Group Therapy, Psychoeducational Therapy
[2019-03-07] MEDS: Perphenazine 2 MG TABLET PO SCH ×2 (09:43→09:55)
[2019-03-07 10:16] VITALS: BP 116/72
== END 2019-03-07 12:54 | disposition home or self-care (01) | DRG 885 ==
LOC: EMEROOARM 22:19 → 1ANU 03-03 02:52 → SUATTDRO 03-03 02:52 → INTOOBSV 03-03 02:52 → 1ANU 03-03 03:41
PROVIDERS: ADMIT Psychiatry & Neurology Psychiatry; ATTEND Psychiatry & Neurology Psychiatry

== ENCOUNTER 2019-05-07 15:08 | Inpatient (IN) ==
--- NOTE | 2019-05-07 15:35 | Emergency Department Note ---
Disposition Clinical Impression: Acute psychosis, Hallucinations Disposition: Admitted As Inpatient Condition: Fair Forms: ED Satisfaction Letter Time of Disposition: 17:24 Psych HPI - General Chief Complaint: ED Psychiatric Symptoms Stated Complaint: psych eval/ believes shes being poisoned Time Seen by Provider: 05/07/19 15:13 Source: patient, EMS Nursing Notes Reviewed: Yes Vital Signs Reviewed: Yes - History of Present Illness HPI Narrative: This is a 33-year-old female with a history of schizophrenia there will presents today for psychiatric evaluation. Patient states that God spoke to her and told her that systemic people have escaped from [facility] over the years from all the Presidents and are infiltrating society. They are bringing drugs and forcing people to take them.. She states that she has received word from [facility] about this. Patient states that she has been hearing voices also. She stated that she thinks she has been slowly poisoned by the satanic people. She denies any suicidal or homicidal ideation. She denies any specific physical complaint. History of similar episodes: Yes Associated Psychiatric Symptoms: auditory hallucinations, delusions - Related Data Home Medications Medication Instructions Recorded Confirmed Docusate Sodium [Dok] 100 mg PO QAM 03/03/19 04/30/19 Loratadine [Claritin] 10 mg PO DAILY 03/03/19 04/30/19 ARIPiprazole [Aripiprazole] 30 mg PO DAILY 04/30/19 04/30/19 Previous Rx's Medication Instructions Recorded hydrOXYzine pamoate [Vistaril] 25 mg PO TID PRN #45 capsule 03/07/19 traZODone [TraZODone] 50 mg PO HS PRN #15 tablet 03/07/19 Benztropine [Cogentin] 0.5 mg PO DAILY tablet 05/02/19 Allergies Allergy/AdvReac Type Severity Reaction Status Date / Time Penicillins Allergy See Verified 03/03/19 12:23 Comments red dye Allergy Hives Verified 03/02/19 22:22 psych meds Allergy Vomiting Uncoded 03/02/19 22:22 All systems ED: reviewed and negative except as stated. Constitutional: Denies: fever Cardiovascular: Denies: chest pain, palpitations Gastrointestinal: Denies: abdominal pain, nausea, vomiting Neurological: Denies: headache, weakness Psychiatric: Reports: auditory hallucinations. Denies: suicidal thoughts Past Medical History - Past Medical History Medical history: Reports: no medical history, other Surgical history: Reports: non-contributory Psychiatric history: Reports: schizophrenia, previous psychiatric hospitalization FOUNTAIN DISPENSER history: Reports: no FOUNTAIN DISPENSER history - Social History Smoking Status: Current every day smoker Smokeless Tobacco Status: No Alcohol use: Reports: none Drug use: Reports: none Physical Exam - General Limitations: no limitations General appearance: alert - Head Head exam: atraumatic, normocephalic, normal inspection - Eye Eye exam: Present: normal appearance, PERRL, EOMI - Expanded Eye Exam Pupils: Left: reactive - ENT ENT exam: normal exam, normal oropharynx, mucous membranes moist - Expanded ENT Exam External ear exam: Present: normal external inspection Mouth exam: Present: normal external inspection Teeth exam: Present: normal inspection Throat exam: Present: normal inspection - Neck Neck exam: Present: normal inspection, full ROM, trachea midline - Chest Chest inspection: Present: normal inspection, symmetric chest wall rise - Respiratory Respiratory exam: Present: normal lung sounds bilaterally - Cardiovascular Cardiovascular exam: Present: regular rate, normal rhythm, normal heart sounds - Abdominal Exam Abdominal exam: Present: soft, Non-Tender. Absent: tenderness, distention, guarding, rebound, rigidity - Extremities Exam Extremities exam: Present: normal inspection, full ROM. Absent: tenderness, pedal edema - Expanded Upper Extremity Exam Shoulder exam: Present: normal inspection, full ROM Arm exam: Present: normal inspection, full ROM Elbow exam: Present: normal inspection, full ROM Forearm/Wrist exam: Present: normal inspection, full ROM Hand exam: Present: normal inspection, full ROM Vascular exam: Normal: capillary refill, radial pulse - Expanded Lower Extremity Exam Hip/Pelvis exam: Present: normal inspection, full ROM Upper leg exam: Present: normal inspection, full ROM Knee exam: Present: normal inspection, full ROM Lower leg exam: Present: normal inspection, full ROM Ankle exam: Present: normal inspection, full ROM Foot/toe exam: Present: normal inspection, full ROM Neurovascular/Tendon exam: Absent: motor deficit, sensory deficit, tendon deficit - Back Exam Back exam: Present: normal inspection, full ROM. Absent: tenderness - Neurological Exam Neurological exam: Present: alert, oriented X3 - Expanded Neurological Exam Patient oriented to: Present: person, place, time Coma Scale Eye Opening: Spontaneous Coma Scale Motor Response: Obeys Commands Coma Scale Verbal Response: Oriented Coma Scale Total: 15 - Psychiatric Psychiatric exam: Present: normal affect, normal mood - Expanded Psychiatric Exam Expanded psych exam: Present: delusional, paranoid, auditory hallucinations, confabulating - Skin Skin exam: Present: warm, dry, intact, normal color Course Vital Signs Temperature 98.5 F 05/07/19 15:18 Pulse Rate 90 05/07/19 15:18 Respiratory Rate 18 05/07/19 15:18 Blood Pressure 117/75 05/07/19 15:18 O2 Sat by Pulse Oximetry 98 05/07/19 15:18 Temperature 98.5 F 05/07/19 15:18 Pulse Rate 90 05/07/19 15:18 Respiratory Rate 18 05/07/19 15:18 Blood Pressure 117/75 05/07/19 15:18 O2 Sat by Pulse Oximetry 98 05/07/19 15:18 Oxygen Delivery Oxygen Delivery Room Air Psych - MDM Narrative Medical decision making narrative: Clinical presentation is consistent with acute psychosis. We will check basic l abs. We will have behavioral health Assessment done. 1753 Labs reviewed. Urine appears contaminated. Patient does not have symptoms suggestive of a UTI. Patient has been seen by the psychiatric team. Recommendation for inpatient admission is made. Patient will be admitted. - Lab Data Result diagrams: 05/07/19 15:33 05/07/19 15:33 Lab Results 05/07/19 05/07/19 05/07/19 Range/Units 15:15 15:15 15:15 WBC (4.3-11.1) K/mcL RBC (3.82-4.97) M/mcL Hgb (11.5-15.4) g/dL Hct (35.3-44.9) % MCV (83.0-100.0) fL MCH (28.0-33.3) pg MCHC (31.6-35.5) g/dL RDW (11.5-14.5) % Plt Count (140-400) K/mcL MPV (9.4-12.4) fL Immature Gran % (0-4) % Seg Neutrophils % % Lymphocytes % % Monocytes % % Eosinophils % % Basophils % % Neutrophils # (1.6-8.9) K/mcL Lymphocytes # (0.6-4.6) K/mcL Monocytes # (0.0-1.3) K/mcL Eosinophils # (0.0-0.6) K/mcL Basophils # (0.0-0.2) K/mcL Sodium (136-145) mEq/L Potassium (3.5-5.1) mEq/L Chloride (98-107) mEq/L Carbon Dioxide (23-29) mEq/L BUN (6-20) mg/dL Creatinine (0.60-1.20) mg/dL Est GFR ( Amer) (> 60) Est GFR (Non-Af Amer) (> 60) BUN/Creatinine Ratio (6-26) Glucose (70-105) mg/dL Calculated Osmolality (280-300) Calcium (8.6-10.3) mg/dL Urine Color Yellow (Yellow) Urine Clarity Cloudy A (Clear) Urine pH 6.0 (5.0-8.0) pH Units Ur Specific [place] 1.012 (1.010-1.025) Urine Protein Negative (Neg-Trace) mg/dL Urine Glucose (UA) Normal (Normal) mg/dL Urine Ketones Negative (Negative) mg/dL Urine Blood Negative (Negative) Urine Nitrite Negative (Negative) Urine Bilirubin Negative (Negative) Urine Urobilinogen Normal (Normal) mg/dL Ur Leukocyte Esterase Trace H (Negative) Urine Microscopic RBC 0-3 (0-3) per hpf Urine Microscopic WBC 5-15 H (0-3) per hpf Ur Squamous Epith Cells Many H (None-Few) per lpf Urine Bacteria Moderate H (None-Few) per hpf Hyaline Casts None Seen (None-Few) per lpf Urine Test Negative (Negative) Salicylates (15.0-30.0) mg/dL Urine Opiates Screen Negative (Bmgwwd=392) ng/mL Ur Buprenorphine Scrn Negative (Cutoff=5) ng/mL Acetaminophen (10-20) mcg/mL Ur Barbiturates Screen Negative (O[place]=911) ng/mL Ur Phencyclidine Scrn Negative (Cutoff=25) ng/mL Ur Amphetamines Screen Negative (Azsufm=7426) ng/mL U Benzodiazepines Scrn Negative (Nsuczq=734) ng/mL Urine Cocaine Screen Negative (Cutoff= 300) ng/mL U Marijuana (THC) Screen Negative (Cutoff = 50) ng/mL Ur Drug Screen Interp See Below Ethyl Alcohol (Less than 10) mg/dL 09/14/19 09/14/19 Range/Units 15:33 15:33 WBC 10.9 (4.3-11.1) K/mcL RBC 3.97 (3.82-4.97) M/mcL Hgb 11.7 (11.5-15.4) g/dL Hct 36.6 (35.3-44.9) % MCV 92.2 (83.0-100.0) fL MCH 29.5 (28.0-33.3) pg MCHC 32.0 (31.6-35.5) g/dL RDW 13.9 (11.5-14.5) % Plt Count 448 H (140-400) K/mcL MPV 9.4 (9.4-12.4) fL Immature Gran % 0.4 (0-4) % Seg Neutrophils % 72.0 % Lymphocytes % 17.8 % Monocytes % 7.6 % Eosinophils % 2.0 % Basophils % 0.2 % Neutrophils # 7.8 (1.6-8.9) K/mcL Lymphocytes # 1.9 (0.6-4.6) K/mcL Monocytes # 0.8 (0.0-1.3) K/mcL Eosinophils # 0.2 (0.0-0.6) K/mcL Basophils # 0.0 (0.0-0.2) K/mcL Sodium 139 (136-145) mEq/L Potassium 3.5 (3.5-5.1) mEq/L Chloride 109 H (98-107) mEq/L Carbon Dioxide 24 (23-29) mEq/L BUN 5 L (6-20) mg/dL Creatinine 0.77 (0.60-1.20) mg/dL Est GFR ( Amer) > 60 (> 60) Est GFR (Non-Af Amer) > 60 (> 60) BUN/Creatinine Ratio 6 (6-26) Glucose 118 H (70-105) mg/dL Calculated Osmolality 286 (280-300) Calcium 8.6 (8.6-10.3) mg/dL Urine Color (Yellow) Urine Clarity (Clear) Urine pH (5.0-8.0) pH Units Ur Specific [place] (1.010-1.025) Urine Protein (Neg-Trace) mg/dL Urine Glucose (UA) (Normal) mg/dL Urine Ketones (Negative) mg/dL Urine Blood (Negative) Urine Nitrite (Negative) Urine Bilirubin (Negative) Urine Urobilinogen (Normal) mg/dL Ur Leukocyte Esterase (Negative) Urine Microscopic RBC (0-3) per hpf Urine Microscopic WBC (0-3) per hpf Ur Squamous Epith Cells (None-Few) per lpf Urine Bacteria (None-Few) per hpf Hyaline Casts (None-Few) per lpf Urine Test (Negative) Salicylates < 2.5 L (15.0-30.0) mg/dL Urine Opiates Screen (Glwdyj=225) ng/mL Ur Buprenorphine Scrn (Cutoff=5) ng/mL Acetaminophen < 10 L (10-20) mcg/mL Ur Barbiturates Screen (Pljlpt=322) ng/mL Ur Phencyclidine Scrn (Cutoff=25) ng/mL Ur Amphetamines Screen (Qqlijd=1675) ng/mL U Benzodiazepines Scrn (Ttxlja=487) ng/mL Urine Cocaine Screen (Cutoff= 300) ng/mL U Marijuana (THC) Screen (Cutoff = 50) ng/mL Ur Drug Screen Interp Ethyl Alcohol < 10 (Less than 10) mg/dL Psychiatric Medical Clearance - Medical Clearance Checklist Medical History: No Social History Section defined Current Vitals: Last Vital Signs Temp 98.5 F 05/07/19 15:18 Pulse 90 05/07/19 15:18 Resp 18 05/07/19 15:18 BP 117/75 05/07/19 15:18 Pulse Ox 98 05/07/19 15:18 Psychiatric Lab Panel: Drug Levels and Toxicity 05/07/19 05/07/19 15:15 15:33 Urine Opiates Screen Negative Acetaminophen < 10 L Ur Barbiturates Screen Negative Ur Phencyclidine Scrn Negative Ur Amphetamines Screen Negative U Benzodiazepines Scrn Negative Urine Cocaine Screen Negative U Marijuana (THC) Screen Negative Ethyl Alcohol < 10 Abnormal Labs: Abnormal lab results Plt Count 448 K/mcL (140-400) H 05/07/19 15:33 Chloride 109 mEq/L (98-107) H 05/07/19 15:33 BUN 5 mg/dL (6-20) L 05/07/19 15:33 Glucose 118 mg/dL (70-105) H 05/07/19 15:33 Urine Clarity Cloudy (Clear) A 05/07/19 15:15 Ur Leukocyte Esterase Trace (Negative) H 05/07/19 15:15 Urine Microscopic WBC 5-15 per hpf (0-3) H 05/07/19 15:15 Ur Squamous Epith Cells Many per lpf (None-Few) H 05/07/19 15:15 Urine Bacteria Moderate per hpf (None-Few) H 05/07/19 15:15 Salicylates < 2.5 mg/dL (15.0-30.0) L 05/07/19 15:33 Acetaminophen < 10 mcg/mL (10-20) L 05/07/19 15:33 Statement of Medical Clearance: I have evaluated the patient, reviewed diagnostic information, and certify that the patient's medical condition is sufficiently stable that transfer to the psychiatric unit does not pose a significant risk of deterioration.
[2019-05-07 15:49] LABS: Bilirubin,Urine Negative (Negative); Blood,Urine Negative (Negative); Clarity,Urine Cloudy (Clear); Color,Urine Yellow (Yellow); Glucose,Urine (UA) Normal (Normal); Ketones,Urine Negative (Negative); Leukocyte Esterase,Urine Trace (Negative); Nitrite,Urine Negative (Negative); Protein,Urine Negative (Neg-Trace); Specific Gravity,Urine 1.012 (1.010-1.025); Urobilinogen,Urine Normal (Normal)
[2019-05-07 15:49] LABS: Basophils % 0.2 %; Eosinophils # 0.2 K/mcL (0.0-0.6); Hematocrit 36.6 % (35.3-44.9); Hemoglobin 11.7 g/dL (11.5-15.4); Immature Granulocytes % 0.4 % (0-4); Lymphocytes # 1.9 K/mcL (0.6-4.6); Lymphocytes % 17.8 %; Mean Corpuscular Hemoglobin 29.5 pg (28.0-33.3); Mean Corpuscular Volume 92.2 fL (83.0-100.0); Mean Platelet Volume 9.4 fL (9.4-12.4); Monocytes # 0.8 K/mcL (0.0-1.3); Monocytes % 7.6 %; Neutrophils # 7.8 K/mcL (1.6-8.9); Platelet Count 448 K/mcL (140-400); Red Blood Count 3.97 M/mcL (3.82-4.97); Red Cell Distribution Width 13.9 % (11.5-14.5); White Blood Count 10.9 K/mcL (4.3-11.1)
[2019-05-07 15:54] LABS: Bacteria,Urine Moderate per hpf (None-Few); Hyaline Casts,Urine None Seen per lpf (None-Few); Squamous Epithelial Cell,Urine Many per lpf (None-Few)
[2019-05-07 15:59] LABS: Amphetamine Screen,Urine Negative ng/mL (Cutoff=1000); Barbiturate Screen,Urine Negative ng/mL (Cutoff=200); Benzodiazepines Screen,Urine Negative ng/mL (Cutoff=200); Cannabinoid Screen,Urine Negative ng/mL (Cutoff = 50); Cocaine Screen,Urine Negative ng/mL (Cutoff= 300); Opiate Screen,Urine Negative ng/mL (Cutoff=300); Phencyclidine Screen,Urine Negative ng/mL (Cutoff=25)
[2019-05-07 16:04] LABS: RBC,Urine 0-3 per hpf (0-3)
[2019-05-07 16:09] LABS: Acetaminophen < 10 mcg/mL (10-20); BUN/Creatinine Ratio 6 (6-26); Blood Urea Nitrogen 5 mg/dL (6-20); Calcium 8.6 mg/dL (8.6-10.3); Carbon Dioxide 24 mEq/L (23-29); Chloride 109 mEq/L (98-107); Ethanol < 10 mg/dL (Less than 10); Glucose 118 mg/dL (70-105); Osmolality,Calculated 286 (280-300); Potassium 3.5 mEq/L (3.5-5.1); Salicylate < 2.5 mg/dL (15.0-30.0); Sodium 139 mEq/L (136-145); eGFR For African Americans > 60 (> 60); eGFR For Non-African Americans > 60 (> 60)
[2019-05-07] MEDS ORDERED: MOM Conc 10 ML UD.LIQ PO PRN (17:48)
[2019-05-07] MEDS ORDERED: traZODone 50 MG TABLET PO PRN ×2 (17:48→17:50)
[2019-05-07] MEDS ORDERED: Haloperidol Lactate 5 MG/ML VIAL IM PRN (17:48)
[2019-05-07] MEDS ORDERED: *HR* LORazepam 2 MG/ML VIAL IM PRN (17:48)
[2019-05-07] MEDS ORDERED: Ibuprofen 400 MG TABLET PO PRN (17:48)
[2019-05-07] MEDS ORDERED: Mag Hydrox/Al Hydrox/Simeth 30 ML UDC PO PRN (17:48)
[2019-05-07] MEDS ORDERED: *HR* LORazepam 1 MG TABLET PO PRN (17:48)
[2019-05-07] MEDS ORDERED: hydrOXYzine pamoate 25 MG CAPSULE PO PRN ×2 (17:48→17:50)
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
[2019-05-08 11:54] LABS: Estimated Average Glucose 120 mg/dl
[2019-05-08 12:13] LABS: Chol/HDL Ratio 3.9 (0-4.9)
[2019-05-08] MEDS: Loratadine 10 MG TABLET PO SCH (12:54)
[2019-05-08] MEDS: ARIPiprazole 10 MG TABLET PO SCH ×2 (12:54→14:53)
[2019-05-09] MEDS: ARIPiprazole 10 MG TABLET PO SCH (11:03)
[2019-05-09] MEDS: Loratadine 10 MG TABLET PO SCH (11:03)
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
[2019-05-10] MEDS: Loratadine 10 MG TABLET PO SCH (08:54)
[2019-05-10] MEDS: ARIPiprazole 10 MG TABLET PO SCH ×2 (08:55→10:07)
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
--- NOTE | 2019-05-11 08:00 | Discharge Summary ---
Date of Encounter: 05/11/19 Time of Encounter: 07:58 Diagnosis - Discharge Diagnosis (1) Chronic schizophrenia Status: Acute Medications - Discharge Medications Prescriptions: ARIPiprazole [Aripiprazole] 30 mg PO DAILY #15 tab Transmission Status: Pending to [facility]. Benztropine [Cogentin] 0.5 mg PO DAILY #30 tablet Transmission Status: Pending to [facility]. Docusate Sodium [Dok] 100 mg PO QAM 03/03/19 [History] Loratadine [Allergy Relief] 10 mg PO DAILY 05/07/19 [History] ARIPiprazole [Aripiprazole] 30 mg PO DAILY #15 tab 05/11/19 [Rx] Benztropine [Cogentin] 0.5 mg PO DAILY #30 tablet 05/11/19 [Rx] Allergy/AdvReac Type Severity Reaction Status Date / Time Penicillins Allergy See Verified 03/03/19 12:23 Comments red dye Allergy Hives Verified 03/02/19 22:22 psych meds Allergy Vomiting Uncoded 03/02/19 22:22 Results Procedures and tests throughout hospitalization: Completed Lab Orders Category Date Time Status Acetaminophen Stat Lab 05/07/19 15:33 Completed Basic Metabolic Panel Stat Lab 05/07/19 15:33 Completed Complete Blood Count [HEME] Stat Lab 05/07/19 15:33 Completed Drug Screen, Urine [UCHEM] Stat Lab 05/07/19 15:15 Completed Ethanol Stat Lab 05/07/19 15:33 Completed Hgb A1C Routine Lab 05/08/19 11:35 Completed Lipid Panel Routine Lab 05/08/19 11:35 Completed Test Result, Urine [URIN] Stat Lab 05/07/19 15:15 Completed Salicylate Stat Lab 05/07/19 15:33 Completed Urinalysis reflex Microscopic [URIN] Stat Lab 05/07/19 15:15 Completed Provider Date of admission: 05/07/19 17:45 Primary care physician: PCP NONE Discharging clinician: Dede Klein Psychiatry Exam - Constitutional Vitals: Temp Pulse Resp BP Pulse Ox 98.2 F 74 16 101/59 98 05/10/19 21:00 05/10/19 21:00 05/10/19 21:00 05/10/19 21:00 05/10/19 21:00 General appearance: age & developmentally appropriate, well-nourished, disheveled - Musculoskeletal Gait: normal Station: relaxed Strength & Tone: normal for patient - Psychiatric Patient Orientation: Yes Person, Yes Time, Yes Place, Yes Circumstance Level of alertness: Alert Behavior: calm, withdrawn Psychomotor activity: Normal Eye Contact: Minimal Contact Mood Description: Euthymic/stable Patient description of mood: Okay Affect description: congruent with mood, constricted Speech Volume: Normal Speech pattern: normal rate, normal rhythm, normal tone, fluent, spontaneous Language & Vocabulary: consistent with education Thought Process: Linear, Goal Oriented Thought Content: No Suicidal ideation, No Homicidal ideation, No Overt delusions, Yes Mandaeism delusion Perceptual Disturbances: No Auditory hallucinations, No Visual hallucinations Attention Span Ability: Capable of Focused Attention Memory Description: Grossly Intact Patient Reliability: Reliable Historian Fund of knowledge: Yes abstraction ability, Yes aware of current events Intelligence Estimate: Average Judgment: Fair Insight: Partial Hospital Course Hospital course: Ms. Agee is a 33 year old female who was admitted for psychosis. She was started back on her Abilify and Cogentin. We discussed long-acting injectable medications and she declined. She did have capacity to make decisions for her medications.Patient was educated of diagnosis and the risk-benefit side effects of this alternative treatment options and was monitored for responsiveness and side effects. Mood anxiety sleep and appetite interest improved as did future orientation. Self-harm thoughts subsided. thinking cleared, psychosis resolved, and mood stabilized back to their baseline levels. Patient was able to attend both individual and group therapy sessions as well as meet with the psychiatrist daily and urged to discuss any medication or treatment issues or other concerns. The patient was educated primarily by verbal means about their diagnosis and manifestations in their life. The option for treatment including group and individual therapy programming was offered to the patient in addition to the use of medications with all their potential risks, benefits, and side effects as well as the risks of not taking medication and non-adhereance were discussed with the patient at length. The patient was given the opportunity to ask questions and was noted to participate in the treatment in the planning process. The patient felt ready and eager to be discharged from the inpatient psychiatric unit to continue on with treatment as an outpatient. The patient agreed that is they were safe for this disposition. The patient was considered to be able to participate in informed consent and decision making with respect to medical, legal, and financial issues of the time of discharge. At the time of discharge the patient adamantly denied any concerns for lethality including suicidal or homicidal thoughts ideations or plans and was future oriented toward ongoing mental health care, medical follow-up and sobriety. Time spent discussing smoking cessation with patient: 3 to 10 minutes Does patient wish to continue nicotine replacement upon disc: No - Time Spent with Patient Total time spent providing and/or coordinating discharge services: 20 Less than 30 minutes Specific discharge activities: Interval history reviewed. Available labs reviewed . Psychotherapy provided. Patient had an opportunity to ask questions and address concerns. Patient was in agreement with the treatment plan. The risks benefits and side effects of medications were discussed with the patient, including alternatives and treatment. The patient was educated on the abstaining from any alcohol or illicit substances, following up with all scheduled appointments, and taking all medications as prescribed. Assessment and Plan - Patient/Caregiver Discharge Instructions Activity: resume usual activities as tolerated Diet: regular diet Additional Instructions: Continue current medications. Follow up with outpatient mental health. Encourage continued therapy in a group or individual setting. The patient was discharged to home. - Follow up Plan Follow up with: NONE,PCP [Primary Care Provider] - Functional capacity at discharge: independent ambulation Overall status at discharge: Stable Disposition: Home, Self-Care Quality - Multiple Antipsychotics Patient discharged on 2 or more antipsychotic medications: No Procedures - Procedures Procedures: Medication Management, Crisis Stabilization, Supportive Therapy, Group Therapy, Psychoeducational Therapy
[2019-05-11] MEDS: Loratadine 10 MG TABLET PO SCH (08:32)
[2019-05-11] MEDS: ARIPiprazole 10 MG TABLET PO SCH (08:32)
[2019-05-11 09:30] VITALS: BP 98/36
== END 2019-05-11 09:43 | disposition home or self-care (01) | DRG 885 ==
LOC: EMEROOARM 15:08 → 1ANU 17:45
PROVIDERS: ADMIT Psychiatry & Neurology Psychiatry; ATTEND Psychiatry & Neurology Psychiatry

== ENCOUNTER 2019-06-14 17:52 | Inpatient (IN) ==
[2019-06-14 18:26] LABS: Basophils % 0.2 %; Eosinophils # 0.2 K/mcL (0.0-0.6); Eosinophils % 1.5 %; Hematocrit 38.9 % (35.3-44.9); Immature Granulocytes % 0.5 % (0-4); Lymphocytes # 3.2 K/mcL (0.6-4.6); Lymphocytes % 22.4 %; Mean Corpuscular HGB Conc 33.4 g/dL (31.6-35.5); Mean Corpuscular Volume 89.6 fL (83.0-100.0); Mean Platelet Volume 9.9 fL (9.4-12.4); Monocytes # 1.1 K/mcL (0.0-1.3); Monocytes % 7.7 %; Neutrophils # 9.6 K/mcL (1.6-8.9); Platelet Count 414 K/mcL (140-400); Red Blood Count 4.34 M/mcL (3.82-4.97); Red Cell Distribution Width 14.6 % (11.5-14.5); Segmented Neutrophils % 67.7 %; White Blood Count 14.2 K/mcL (4.3-11.1)
[2019-06-14 18:38] LABS: Bilirubin,Urine Negative (Negative); Blood,Urine Negative (Negative); Clarity,Urine Cloudy (Clear); Color,Urine Yellow (Yellow); Glucose,Urine (UA) Normal (Normal); Ketones,Urine Negative (Negative); Leukocyte Esterase,Urine Negative (Negative); Nitrite,Urine Negative (Negative); Protein,Urine Negative (Neg-Trace); Specific Gravity,Urine 1.007 (1.010-1.025); Urobilinogen,Urine Normal (Normal)
[2019-06-14 18:40] LABS: Bacteria,Urine Moderate per hpf (None-Few); Hyaline Casts,Urine None Seen per lpf (None-Few); Squamous Epithelial Cell,Urine Many per lpf (None-Few)
[2019-06-14 18:50] LABS: Estimated Average Glucose 128 mg/dl
[2019-06-14 18:54] LABS: Amphetamine Screen,Urine Negative ng/mL (Cutoff=1000); Barbiturate Screen,Urine Negative ng/mL (Cutoff=200); Benzodiazepines Screen,Urine Negative ng/mL (Cutoff=200); Cannabinoid Screen,Urine Negative ng/mL (Cutoff = 50); Cocaine Screen,Urine Negative ng/mL (Cutoff= 300); Opiate Screen,Urine Negative ng/mL (Cutoff=300); Phencyclidine Screen,Urine Negative ng/mL (Cutoff=25)
[2019-06-14 18:54] LABS: Acetaminophen < 10 mcg/mL (10-20); BUN/Creatinine Ratio 9 (6-26); Blood Urea Nitrogen 6 mg/dL (6-20); Calcium 8.7 mg/dL (8.6-10.3); Carbon Dioxide 22 mEq/L (23-29); Chloride 108 mEq/L (98-107); Chol/HDL Ratio 3.8 (0-4.9); Cholesterol 150 mg/dL (< 200); Ethanol < 10 mg/dL (Less than 10); Glucose 97 mg/dL (70-105); HDL Cholesterol 39 mg/dL (40-59); LDL Cholesterol,Calculated 79 mg/dL (0-99); Osmolality,Calculated 284 (280-300); Potassium 3.8 mEq/L (3.5-5.1); Salicylate < 2.5 mg/dL (15.0-30.0); Sodium 138 mEq/L (136-145); Triglycerides 159 mg/dL (< 150); eGFR For African Americans > 60 (> 60); eGFR For Non-African Americans > 60 (> 60)
[2019-06-14] MEDS ORDERED: traZODone 50 MG TABLET PO PRN (22:54)
[2019-06-14] MEDS ORDERED: Acetaminophen 325 MG TABLET PO PRN (22:54)
[2019-06-14] MEDS ORDERED: *HR* LORazepam 2 MG/ML VIAL IM PRN (22:54)
[2019-06-14] MEDS ORDERED: Haloperidol Lactate 5 MG/ML VIAL IM PRN (22:54)
[2019-06-14] MEDS ORDERED: MOM Conc 10 ML UD.LIQ PO PRN (22:54)
[2019-06-15] MEDS: RisperiDAL 3 MG TABLET PO SCH (12:10)
[2019-06-15] MEDS ORDERED: Acetaminophen 325 MG TABLET PO PRN (23:30)
[2019-06-16] MEDS: RisperiDAL 3 MG TABLET PO SCH (08:53)
[2019-06-16] MEDS: hydrOXYzine pamoate 25 MG CAPSULE PO PRN (21:42)
[2019-06-17] MEDS: RisperiDAL 3 MG TABLET PO SCH (11:05)
[2019-06-18] MEDS: RisperiDAL 3 MG TABLET PO SCH (21:12)
[2019-06-19] MEDS: RisperiDAL 3 MG TABLET PO SCH (10:59)
[2019-06-20] MEDS: RisperiDAL 3 MG TABLET PO SCH (09:01)
[2019-06-20] MEDS: RISPERIDONE MICROSPHERES 50 MG IM SCH (17:20)
[2019-06-21] MEDS: RisperiDAL 3 MG TABLET PO SCH (09:44)
[2019-06-21] MEDS: Mag Hydrox/Al Hydrox/Simeth 30 ML UDC PO PRN (21:30)
[2019-06-22] MEDS: RisperiDAL 3 MG TABLET PO SCH (08:31)
[2019-06-23] MEDS: RisperiDAL 3 MG TABLET PO SCH ×2 (10:36→15:07)
[2019-06-24] MEDS: RisperiDAL 3 MG TABLET PO SCH (10:14)
[2019-06-24] MEDS: *HR* LORazepam 1 MG TABLET PO PRN (19:56)
[2019-06-25] MEDS: RisperiDAL 3 MG TABLET PO SCH ×2 (11:07→14:10)
[2019-06-25] MEDS ORDERED: RisperiDAL 3 MG TABLET PO ONE (14:00)
[2019-06-25] MEDS: Mag Hydrox/Al Hydrox/Simeth 30 ML UDC PO PRN (22:57)
[2019-06-25] MEDS: *HR* LORazepam 1 MG TABLET PO PRN (22:58)
[2019-06-26] MEDS: RisperiDAL 3 MG TABLET PO SCH ×2 (13:10)
[2019-06-26] MEDS ORDERED: RisperiDAL 3 MG TABLET PO ONE (14:00)
[2019-06-26 15:28] LABS: Amphetamine Screen,Urine Negative ng/mL (Cutoff=1000); Barbiturate Screen,Urine Negative ng/mL (Cutoff=200); Benzodiazepines Screen,Urine Negative ng/mL (Cutoff=200); Cannabinoid Screen,Urine Negative ng/mL (Cutoff = 50); Cocaine Screen,Urine Negative ng/mL (Cutoff= 300); Opiate Screen,Urine Negative ng/mL (Cutoff=300); Phencyclidine Screen,Urine Negative ng/mL (Cutoff=25)
[2019-06-27] MEDS: RisperiDAL 3 MG TABLET PO SCH (09:20)
[2019-06-28] MEDS: RisperiDAL 3 MG TABLET PO SCH (09:26)
[2019-06-29] MEDS ORDERED: FLUPHENAZINE 2.5 MG/ML IM PRN (09:28)
[2019-07-01] MEDS ORDERED: RisperiDONE MICROSPHERES 25 MG/2 ML SYRINGE IM ONE (09:56)
[2019-07-03] MEDS: RISPERIDONE MICROSPHERES 50 MG IM SCH (09:28)
[2019-07-04] MEDS: hydrOXYzine pamoate 25 MG CAPSULE PO PRN (04:01)
[2019-07-06] MEDS ORDERED: FLU Vac QV 19-20 (6Month+)/PF 0.5 ML SYRINGE IM ONE (11:47)
[2019-07-08 09:29] VITALS: BP 118/79
== END 2019-07-08 10:11 | disposition home health service (06) | DRG 885 ==
LOC: EMEROOARM 17:52 → 1ANU 22:14 → SUATTDRO 22:14 → 1ANU 22:58
PROVIDERS: ADMIT Psychiatry & Neurology Psychiatry; ATTEND Psychiatry & Neurology Psychiatry

== ENCOUNTER 2019-12-30 14:21 | Inpatient (IN) ==
[2019-12-30 14:45] LABS: Bilirubin,Urine Negative (Negative); Blood,Urine Moderate (Negative); Color,Urine Yellow (Yellow); Glucose,Urine (UA) Normal (Normal); Ketones,Urine Negative (Negative); Leukocyte Esterase,Urine Small (Negative); Nitrite,Urine Negative (Negative); PH,Urine 6.5 pH Units (5.0-8.0); Protein,Urine Negative (Neg-Trace); Specific Gravity,Urine 1.019 (1.010-1.025); Urobilinogen,Urine Normal (Normal)
[2019-12-30 14:48] LABS: Bacteria,Urine Few per hpf (None-Few); Hyaline Casts,Urine None Seen per lpf (None-Few); Squamous Epithelial Cell,Urine Many per lpf (None-Few)
[2019-12-30 14:53] LABS: Basophils % 0.2 %; Eosinophils # 0.1 K/mcL (0.0-0.6); Hemoglobin 14.3 g/dL (11.5-15.4); Immature Granulocytes % 0.4 % (0-4); Lymphocytes # 2.6 K/mcL (0.6-4.6); Lymphocytes % 18.8 %; Mean Corpuscular HGB Conc 32.5 g/dL (31.6-35.5); Mean Corpuscular Hemoglobin 30.8 pg (28.0-33.3); Mean Corpuscular Volume 94.6 fL (83.0-100.0); Mean Platelet Volume 9.3 fL (9.4-12.4); Monocytes # 0.8 K/mcL (0.0-1.3); Neutrophils # 10.2 K/mcL (1.6-8.9); Platelet Count 440 K/mcL (140-400); Red Blood Count 4.65 M/mcL (3.82-4.97); Red Cell Distribution Width 14.4 % (11.5-14.5); Segmented Neutrophils % 73.6 %; White Blood Count 13.8 K/mcL (4.3-11.1)
[2019-12-30 14:53] LABS: Clarity,Urine Slightly Hazy (Clear)
[2019-12-30 14:55] LABS: Amphetamine Screen,Urine Negative ng/mL (Cutoff=1000); Barbiturate Screen,Urine Negative ng/mL (Cutoff=200); Benzodiazepines Screen,Urine Negative ng/mL (Cutoff=200); Cannabinoid Screen,Urine Negative ng/mL (Cutoff = 50); Cocaine Screen,Urine Negative ng/mL (Cutoff= 300); Opiate Screen,Urine Negative ng/mL (Cutoff=300); Phencyclidine Screen,Urine Negative ng/mL (Cutoff=25)
[2019-12-30 15:11] LABS: Acetaminophen < 10 mcg/mL (10-20); BUN/Creatinine Ratio 17 (6-26); Blood Urea Nitrogen 11 mg/dL (6-20); Calcium 9.4 mg/dL (8.6-10.3); Carbon Dioxide 25 mEq/L (23-29); Chloride 107 mEq/L (98-107); Ethanol < 10 mg/dL (Less than 10); Glucose 87 mg/dL (70-105); Osmolality,Calculated 281 (280-300); Potassium 3.9 mEq/L (3.5-5.1); Salicylate < 2.5 mg/dL (15.0-30.0); Sodium 136 mEq/L (136-145); eGFR For African Americans > 60 (> 60); eGFR For Non-African Americans > 60 (> 60)
[2019-12-30 15:13] LABS: RBC,Urine 0-3 per hpf (0-3)
[2019-12-30] MEDS ORDERED: Ibuprofen 400 MG TABLET PO PRN (16:12)
[2019-12-30] MEDS ORDERED: MOM Conc 10 ML UD.LIQ PO PRN (16:12)
[2019-12-30] MEDS ORDERED: QUEtiapine Fumarate 25 MG TABLET PO PRN (16:12)
[2019-12-30] MEDS ORDERED: *HR* LORazepam 2 MG/ML VIAL IM PRN (16:12)
[2019-12-30] MEDS ORDERED: Mag Hydrox/Al Hydrox/Simeth 30 ML UDC PO PRN (16:12)
[2019-12-30] MEDS ORDERED: *HR* LORazepam 1 MG TABLET PO PRN (16:12)
[2019-12-30] MEDS ORDERED: FluPHENAZine 25 MG/10 ML VIAL IM PRN (16:16)
[2019-12-30] MEDS ORDERED: FluPHENAZine 10 MG TABLET PO SCH (21:00)
[2019-12-30] MEDS: Perphenazine 8 MG TABLET PO SCH (22:14)
[2019-12-31] MEDS: Perphenazine 8 MG TABLET PO SCH ×3 (09:53→20:59)
[2019-12-31 16:52] LABS: Bilirubin,Urine Negative (Negative); Blood,Urine Small (Negative); Clarity,Urine Clear (Clear); Color,Urine Yellow (Yellow); Glucose,Urine (UA) Normal (Normal); Ketones,Urine Negative (Negative); Leukocyte Esterase,Urine Negative (Negative); Nitrite,Urine Negative (Negative); Protein,Urine Negative (Neg-Trace); Specific Gravity,Urine 1.006 (1.010-1.025); Urobilinogen,Urine Normal (Normal)
[2019-12-31 16:55] LABS: Bacteria,Urine None Seen per hpf (None-Few); Hyaline Casts,Urine None Seen per lpf (None-Few); RBC,Urine 0-3 per hpf (0-3); Squamous Epithelial Cell,Urine Moderate per lpf (None-Few); WBC,Urine 0-3 per hpf (0-3)
[2019-12-31] MEDS: traZODone 50 MG TABLET PO PRN (21:01)
[2020-01-01 08:15] LABS: Chol/HDL Ratio 4.4 (0-4.9)
[2020-01-01] MEDS: Perphenazine 8 MG TABLET PO SCH ×3 (08:45→20:01)
[2020-01-01 13:06] LABS: Estimated Average Glucose 117 mg/dl
[2020-01-01] MEDS: traZODone 50 MG TABLET PO PRN (20:01)
[2020-01-02] MEDS: Perphenazine 8 MG TABLET PO SCH ×3 (09:32→20:21)
[2020-01-02] MEDS: traZODone 50 MG TABLET PO PRN (20:21)
[2020-01-03 08:55] VITALS: BP 124/78
[2020-01-03] MEDS: Perphenazine 8 MG TABLET PO SCH (09:09)
== END 2020-01-03 12:25 | disposition home or self-care (01) | DRG 885 ==
LOC: EMEROOARM 14:21 → 1ANU 16:08
PROVIDERS: ADMIT Psychiatry & Neurology Psychiatry; ATTEND Psychiatry & Neurology Psychiatry

== ENCOUNTER 2020-05-02 22:13 | Inpatient (IN) ==
[2020-05-02 22:38] LABS: Bilirubin,Urine Negative (Negative); Blood,Urine Negative (Negative); Clarity,Urine Clear (Clear); Color,Urine Colorless (Yellow); Glucose,Urine (UA) Normal (Normal); Ketones,Urine Negative (Negative); Leukocyte Esterase,Urine Negative (Negative); Nitrite,Urine Negative (Negative); PH,Urine 6.5 pH Units (5.0-8.0); Protein,Urine Negative (Neg-Trace); Specific Gravity,Urine 1.005 (1.010-1.025); Urobilinogen,Urine Normal (Normal)
[2020-05-02 22:52] LABS: Amphetamine Screen,Urine Negative ng/mL (Cutoff=1000); Barbiturate Screen,Urine Negative ng/mL (Cutoff=200); Benzodiazepines Screen,Urine Negative ng/mL (Cutoff=200); Cannabinoid Screen,Urine Negative ng/mL (Cutoff = 50); Cocaine Screen,Urine Negative ng/mL (Cutoff= 300); Opiate Screen,Urine Negative ng/mL (Cutoff=300); Phencyclidine Screen,Urine Negative ng/mL (Cutoff=25)
[2020-05-02 23:17] LABS: Estimated Average Glucose 128 mg/dl
[2020-05-02 23:23] LABS: Basophils % 0.3 %; Eosinophils # 0.3 K/mcL (0.0-0.6); Eosinophils % 1.9 %; Hematocrit 34.6 % (35.3-44.9); Hemoglobin 10.6 g/dL (11.5-15.4); Immature Granulocytes % 0.7 % (0-4); Lymphocytes # 4.1 K/mcL (0.6-4.6); Lymphocytes % 30.1 %; Mean Corpuscular HGB Conc 30.6 g/dL (31.6-35.5); Mean Corpuscular Hemoglobin 27.7 pg (28.0-33.3); Mean Corpuscular Volume 90.6 fL (83.0-100.0); Mean Platelet Volume 9.3 fL (9.4-12.4); Monocytes # 1.2 K/mcL (0.0-1.3); Monocytes % 8.9 %; Neutrophils # 7.9 K/mcL (1.6-8.9); Platelet Count 487 K/mcL (140-400); Red Blood Count 3.82 M/mcL (3.82-4.97); Red Cell Distribution Width 14.1 % (11.5-14.5); Segmented Neutrophils % 58.1 %; White Blood Count 13.6 K/mcL (4.3-11.1)
[2020-05-02 23:32] LABS: Acetaminophen < 10 mcg/mL (10-20); BUN/Creatinine Ratio 11 (6-26); Blood Urea Nitrogen 7 mg/dL (6-20); Calcium 8.3 mg/dL (8.6-10.3); Carbon Dioxide 24 mEq/L (23-29); Chloride 107 mEq/L (98-107); Chol/HDL Ratio 4.6 (0-4.9); Cholesterol 164 mg/dL (< 200); Ethanol < 10 mg/dL (Less than 10); Glucose 113 mg/dL (70-105); HDL Cholesterol 36 mg/dL (40-59); LDL Cholesterol,Calculated 99 mg/dL (< 100); Osmolality,Calculated 285 (280-300); Potassium 3.6 mEq/L (3.5-5.1); Salicylate < 2.5 mg/dL (15.0-30.0); Sodium 138 mEq/L (136-145); Triglycerides 146 mg/dL (< 150); eGFR For African Americans > 60 (> 60); eGFR For Non-African Americans > 60 (> 60)
[2020-05-03] MEDS ORDERED: Ondansetron ODT 4 MG TAB.RAPDIS SL ONE (00:14)
[2020-05-03] MEDS ORDERED: *HR* LORazepam 1 MG TABLET PO PRN (00:59)
[2020-05-03] MEDS ORDERED: MOM Conc 10 ML UD.LIQ PO PRN (00:59)
[2020-05-03] MEDS ORDERED: *HR* LORazepam 2 MG/ML VIAL IM PRN (00:59)
[2020-05-03] MEDS ORDERED: traZODone 50 MG TABLET PO PRN (00:59)
[2020-05-03] MEDS ORDERED: Acetaminophen 325 MG TABLET PO PRN (00:59)
[2020-05-03] MEDS ORDERED: Mag Hydrox/Al Hydrox/Simeth 30 ML UDC PO PRN (00:59)
[2020-05-03] MEDS ORDERED: haloperidoL 5 MG TABLET PO PRN (00:59)
[2020-05-03] MEDS ORDERED: Haloperidol Lactate 5 MG/ML VIAL IM PRN (00:59)
[2020-05-03] MEDS: hydrOXYzine pamoate 25 MG CAPSULE PO PRN ×3 (01:38→19:59)
[2020-05-03] MEDS ORDERED: Ondansetron ODT 4 MG TAB.RAPDIS SL PRN (01:53)
[2020-05-04 09:08] VITALS: BP 130/84
== END 2020-05-04 09:35 | disposition home or self-care (01) | DRG 885 ==
LOC: EMEROOARM 22:13 → 1ANU 05-03 00:54
PROVIDERS: ADMIT Psychiatry & Neurology Psychiatry; ATTEND Psychiatry & Neurology Psychiatry

== ENCOUNTER 2020-11-24 07:30 | Inpatient (IN) ==
[2020-11-24] MEDS ORDERED: 0.9 % Sodium Chloride 1,000 ML IVC ONE (07:47)
[2020-11-24] MEDS ORDERED: Isovue-370 500 ML BOTTLE IVP ONE (07:51)
[2020-11-24] MEDS ORDERED: MetroNIDAZOLE 500 MG/100 ML 500 MG/100 ML BAG IVPB ONE (08:15)
[2020-11-24] MEDS ORDERED: Vancomycin 1,750 MG/517.5 ML IV.SOLN IVPB ONE (08:15)
[2020-11-24 08:16] LABS: Basophils % 0.1 %; Eosinophils % 0.7 %; Mean Platelet Volume 9.7 fL (9.4-12.4); Red Cell Distribution Width 19.5 % (11.5-14.5)
[2020-11-24 08:17] LABS: Eosinophils # 0.1 K/mcL (0.0-0.6); Hematocrit 25.6 % (35.3-44.9); Hemoglobin 7.3 g/dL (11.5-15.4); Immature Granulocytes % 1.4 % (0-4); Lymphocytes # 1.2 K/mcL (0.6-4.6); Lymphocytes % 6.8 %; Mean Corpuscular HGB Conc 28.5 g/dL (31.6-35.5); Mean Corpuscular Hemoglobin 20.3 pg (28.0-33.3); Mean Corpuscular Volume 71.1 fL (83.0-100.0); Monocytes # 1.1 K/mcL (0.0-1.3); Monocytes % 6.1 %; Neutrophils # 15.3 K/mcL (1.6-8.9); Platelet Count 502 K/mcL (140-400); Segmented Neutrophils % 84.9 %
[2020-11-24 08:36] LABS: Alanine Aminotransferase 10 Units/L (7-52); Albumin 3.1 g/dL (3.5-5.7); Alkaline Phosphatase 56 Units/L (34-104); Aspartate Amino Transferase 11 Units/L (13-39); BUN/Creatinine Ratio 12 (6-26); Bilirubin,Indirect 0.3 mg/dL (0.0-1.0); Bilirubin,Total 0.3 mg/dL (0.3-1.0); Blood Urea Nitrogen 7 mg/dL (6-20); Calcium 8.6 mg/dL (8.6-10.3); Carbon Dioxide 22 mEq/L (23-29); Chloride 101 mEq/L (98-107); Globulin 3.2 g/dL (2.4-3.5); Glucose 156 mg/dL (70-105); Osmolality,Calculated 273 (280-300); Potassium 3.3 mEq/L (3.5-5.1); Sodium 131 mEq/L (136-145); Total Protein 6.3 g/dL (6.4-8.9); eGFR For African Americans > 60 (> 60); eGFR For Non-African Americans > 60 (> 60)
[2020-11-24 08:53] LABS: Anisocytosis 1+ (Not Present); Hypochromasia Present (Not Present); Microcytosis Present (Not Present)
[2020-11-24 09:19] LABS: Bacteria,Urine Few per hpf (None-Few); Bilirubin,Urine Negative (Negative); Blood,Urine Trace (Negative); Clarity,Urine Clear (Clear); Color,Urine Colorless (Yellow); Glucose,Urine (UA) Normal (Normal); Ketones,Urine Negative (Negative); Leukocyte Esterase,Urine Negative (Negative); Nitrite,Urine Negative (Negative); PH,Urine 6.5 pH Units (5.0-8.0); Protein,Urine Negative (Neg-Trace); RBC,Urine 0-3 per hpf (0-3); Specific Gravity,Urine < 1.005 (1.010-1.025); Squamous Epithelial Cell,Urine Few per hpf (None-Few); Urobilinogen,Urine Normal (Normal); WBC,Urine 0-3 per hpf (0-3)
[2020-11-24 09:26] LABS: Amphetamine Screen,Urine Negative ng/mL (Cutoff=1000); Barbiturate Screen,Urine Negative ng/mL (Cutoff=200); Benzodiazepines Screen,Urine Negative ng/mL (Cutoff=200); Cannabinoid Screen,Urine Negative ng/mL (Cutoff = 50); Cocaine Screen,Urine Negative ng/mL (Cutoff= 300); Opiate Screen,Urine Negative ng/mL (Cutoff=300); Phencyclidine Screen,Urine Negative ng/mL (Cutoff=25)
[2020-11-24] MEDS ORDERED: Potassium Chloride 20 MEQ, Lidocaine 1% 2 ML in 0.9 % Sodium Chloride 250 ML IVPB ONE (09:55)
[2020-11-24] MEDS ORDERED: Naloxone 0.4 MG/ML INJ IVP PRN (10:22)
[2020-11-24 10:49] LABS: C-Reactive Protein 278 mg/L (Less than 10)
[2020-11-24] MEDS ORDERED: Vancomycin 1,750 MG in 0.9 % Sodium Chloride 250 ML IVPB SCH (11:00)
[2020-11-24] MEDS ORDERED: *HR* FentaNYL (PF) 100 MCG/2 ML VIAL ONE (11:34)
[2020-11-24] MEDS ORDERED: *HR* Propofol 200 MG/20 ML VIAL IVP ONE (11:34)
[2020-11-24] MEDS ORDERED: *HR* Rocuronium Bromide 50 MG/5 ML VIAL ONE (11:35)
[2020-11-24] MEDS: *HR* OxyCODONE/APAP 10/325 TABLET PO PRN ×2 (11:35→17:37)
[2020-11-24] MEDS ORDERED: Ondansetron 4 MG/2 ML VIAL ONE (11:35)
[2020-11-24] MEDS ORDERED: Lidocaine -MPF 4% 5 ML AMPUL ONE (11:35)
[2020-11-24] MEDS ORDERED: *HR* Succinylcholine 200 MG/10 ML VIAL IVP ONE (11:35)
[2020-11-24] MEDS ORDERED: Dexamethasone 4 MG/ML VIAL ONE (11:35)
[2020-11-24] MEDS ORDERED: Lidocaine -MPF 2% 2 ML VIAL ONE (11:35)
[2020-11-24 12:36] LABS: Adenovirus Not Detected (Not Detect); Bordetella Pertussis Not Detected (Not Detect); Chlamydophila pneumoniae Not Detected (Not Detect); Coronavirus 229E Not Detected (Not Detect); Coronavirus HKU1 Not Detected (Not Detect); Coronavirus NL63 Not Detected (Not Detect); Coronavirus OC43 Not Detected (Not Detect); Human Metapneumovirus Not Detected (Not Detect); Human Rhinovirus/Enterovirus Not Detected (Not Detect); Influenza A Subtype 2009 H1 Not Detected (Not Detect); Influenza B Not Detected (Not Detect); Mycoplasma pneumoniae Not Detected (Not Detect); Parainfluenza Virus 1 Not Detected (Not Detect); Parainfluenza Virus 2 Not Detected (Not Detect); Parainfluenza Virus 3 Not Detected (Not Detect); Parainfluenza Virus 4 Not Detected (Not Detect); Respiratory Syncytial Virus Not Detected (Not Detect); SARS-CoV-2 Not Detected (Not Detect)
[2020-11-24] MEDS ORDERED: *HR* Vasopressin 20 UNIT/ML VIAL ONE (12:44)
[2020-11-24] MEDS ORDERED: Ondansetron 4 MG/2 ML VIAL IVP PRN (13:00)
[2020-11-24] MEDS ORDERED: *HR* HYDROmorphone (PF) 1 MG/ML SYRINGE IVP PRN (13:00)
[2020-11-24] MEDS ORDERED: *HR* OxyCODONE Immed Rel 5 MG TABLET PO PRN (13:00)
[2020-11-24] MEDS ORDERED: CefOXitin 2,000 MG VIAL ONE (13:47)
[2020-11-24] MEDS ORDERED: Morphine Sulfate 2 MG/ML SYRINGE IVP PRN (15:12)
[2020-11-24] MEDS: *HR* Heparin 5,000 UNIT/ML VIAL SQ SCH ×2 (15:56→22:30)
[2020-11-24] MEDS: 0.9 % Sodium Chloride 1,000 ML IVC SCH (16:12)
[2020-11-24] MEDS: Cefepime HCl 2,000 MG in Water for inj. (sterile) 20 ML IVP SCH (16:16)
[2020-11-24] MEDS: MetroNIDAZOLE 500 MG/100 ML 500 MG/100 ML BAG IVPB SCH (16:17)
[2020-11-24] MEDS: FluPHENAZine 10 MG TABLET PO SCH (20:10)
[2020-11-24] MEDS: LUMATEPERONE TOSYLATE 42 MG PO SCH (20:10)
[2020-11-24] MEDS: Vancomycin 1,750 MG/517.5 ML IV.SOLN IVPB SCH (22:29)
[2020-11-25] MEDS: Cefepime HCl 2,000 MG in Water for inj. (sterile) 20 ML IVP SCH ×3 (00:32→16:50)
[2020-11-25] MEDS: *HR* OxyCODONE/APAP 10/325 TABLET PO PRN ×4 (00:35→20:35)
[2020-11-25] MEDS: MetroNIDAZOLE 500 MG/100 ML 500 MG/100 ML BAG IVPB SCH ×3 (00:41→16:51)
[2020-11-25] MEDS: 0.9 % Sodium Chloride 1,000 ML IVC SCH (03:11)
[2020-11-25] MEDS: *HR* Heparin 5,000 UNIT/ML VIAL SQ SCH ×3 (05:54→21:05)
[2020-11-25 06:34] LABS: Basophils % 0.2 %; Hemoglobin 6.5 g/dL (11.5-15.4)
[2020-11-25 06:36] LABS: Eosinophils # 0.2 K/mcL (0.0-0.6); Eosinophils % 1.4 %; Hematocrit 23.8 % (35.3-44.9); Immature Granulocytes % 1.4 % (0-4); Lymphocytes # 1.8 K/mcL (0.6-4.6); Lymphocytes % 16.7 %; Mean Corpuscular HGB Conc 27.3 g/dL (31.6-35.5); Mean Corpuscular Hemoglobin 19.9 pg (28.0-33.3); Mean Platelet Volume 9.3 fL (9.4-12.4); Monocytes % 9.7 %; Neutrophils # 7.4 K/mcL (1.6-8.9); Platelet Count 436 K/mcL (140-400); Red Blood Count 3.26 M/mcL (3.82-4.97); Red Cell Distribution Width 19.4 % (11.5-14.5); Segmented Neutrophils % 70.6 %; White Blood Count 10.5 K/mcL (4.3-11.1)
[2020-11-25 06:53] LABS: BUN/Creatinine Ratio 5 (6-26); Blood Urea Nitrogen 3 mg/dL (6-20); Calcium 7.8 mg/dL (8.6-10.3); Carbon Dioxide 27 mEq/L (23-29); Chloride 110 mEq/L (98-107); Glucose 115 mg/dL (70-105); Osmolality,Calculated 287 (280-300); Potassium 3.7 mEq/L (3.5-5.1); Sodium 140 mEq/L (136-145); eGFR For African Americans > 60 (> 60); eGFR For Non-African Americans > 60 (> 60)
[2020-11-25] MEDS: Nicotine 21 MG PATCH.TD24 TD SCH (07:31)
[2020-11-25] MEDS: FluPHENAZine 10 MG TABLET PO SCH ×2 (07:32→20:35)
[2020-11-25] MEDS: Multivit/Ca/Min/Fe/FA 1 TAB TABLET PO SCH (10:22)
[2020-11-25] MEDS: Vancomycin 1,750 MG/517.5 ML IV.SOLN IVPB SCH (10:22)
[2020-11-25] MEDS ORDERED: 0.9 % Sodium Chloride 250 ML ONE ×2 (12:50→15:15)
[2020-11-25] MEDS: LUMATEPERONE TOSYLATE 42 MG PO SCH (20:36)
[2020-11-25] MEDS: Vancomycin 2,000 MG/520 ML IV.SOLN IVPB SCH (21:44)
[2020-11-26] MEDS: Cefepime HCl 2,000 MG in Water for inj. (sterile) 20 ML IVP SCH ×4 (00:07→23:09)
[2020-11-26] MEDS: MetroNIDAZOLE 500 MG/100 ML 500 MG/100 ML BAG IVPB SCH ×4 (00:07→23:08)
[2020-11-26] MEDS: *HR* OxyCODONE/APAP 10/325 TABLET PO PRN ×3 (02:41→23:08)
[2020-11-26] MEDS: *HR* Heparin 5,000 UNIT/ML VIAL SQ SCH ×3 (05:48→21:37)
[2020-11-26 08:06] LABS: Basophils % 0.4 %; Eosinophils # 0.2 K/mcL (0.0-0.6); Eosinophils % 2.5 %; Hematocrit 28.4 % (35.3-44.9); Immature Granulocytes % 3.9 % (0-4); Lymphocytes # 1.9 K/mcL (0.6-4.6); Lymphocytes % 20.1 %; Mean Corpuscular HGB Conc 29.2 g/dL (31.6-35.5); Mean Corpuscular Hemoglobin 21.7 pg (28.0-33.3); Mean Corpuscular Volume 74.3 fL (83.0-100.0); Mean Platelet Volume 9.3 fL (9.4-12.4); Monocytes # 0.9 K/mcL (0.0-1.3); Monocytes % 9.1 %; Neutrophils # 6.2 K/mcL (1.6-8.9); Nucleated Red Blood Cells 0.2 /100 WBC (0); Platelet Count 420 K/mcL (140-400); Red Blood Count 3.82 M/mcL (3.82-4.97); Red Cell Distribution Width 20.6 % (11.5-14.5); White Blood Count 9.6 K/mcL (4.3-11.1)
[2020-11-26 08:07] LABS: Hemoglobin 8.3 g/dL (11.5-15.4)
[2020-11-26 08:15] LABS: BUN/Creatinine Ratio 10 (6-26); Blood Urea Nitrogen 5 mg/dL (6-20); Calcium 8.1 mg/dL (8.6-10.3); Carbon Dioxide 26 mEq/L (23-29); Chloride 108 mEq/L (98-107); Glucose 110 mg/dL (70-105); Osmolality,Calculated 286 (280-300); Potassium 3.6 mEq/L (3.5-5.1); Sodium 139 mEq/L (136-145); eGFR For African Americans > 60 (> 60); eGFR For Non-African Americans > 60 (> 60)
[2020-11-26] MEDS: FluPHENAZine 10 MG TABLET PO SCH ×2 (09:35→21:37)
[2020-11-26] MEDS: Multivit/Ca/Min/Fe/FA 1 TAB TABLET PO SCH (09:35)
[2020-11-26] MEDS: Nicotine 21 MG PATCH.TD24 TD SCH (09:39)
[2020-11-26] MEDS: Vancomycin 2,000 MG/520 ML IV.SOLN IVPB SCH (11:00)
[2020-11-26] MEDS: LUMATEPERONE TOSYLATE 42 MG PO SCH (21:37)
[2020-11-27 04:46] LABS: Basophils # 0.1 K/mcL (0.0-0.2); Basophils % 0.5 %; Eosinophils # 0.3 K/mcL (0.0-0.6); Eosinophils % 2.8 %; Hematocrit 28.2 % (35.3-44.9); Hemoglobin 8.2 g/dL (11.5-15.4); Immature Granulocytes % 4.9 % (0-4); Lymphocytes # 2.3 K/mcL (0.6-4.6); Lymphocytes % 19.9 %; Mean Corpuscular HGB Conc 29.1 g/dL (31.6-35.5); Mean Corpuscular Hemoglobin 21.6 pg (28.0-33.3); Mean Corpuscular Volume 74.4 fL (83.0-100.0); Mean Platelet Volume 9.4 fL (9.4-12.4); Monocytes # 0.8 K/mcL (0.0-1.3); Monocytes % 7.1 %; Neutrophils # 7.6 K/mcL (1.6-8.9); Nucleated Red Blood Cells 0.3 /100 WBC (0); Platelet Count 424 K/mcL (140-400); Red Blood Count 3.79 M/mcL (3.82-4.97); Red Cell Distribution Width 20.8 % (11.5-14.5); Segmented Neutrophils % 64.8 %; White Blood Count 11.7 K/mcL (4.3-11.1)
[2020-11-27 04:59] LABS: BUN/Creatinine Ratio 10 (6-26); Blood Urea Nitrogen 6 mg/dL (6-20); Carbon Dioxide 26 mEq/L (23-29); Chloride 108 mEq/L (98-107); Glucose 111 mg/dL (70-105); Osmolality,Calculated 286 (280-300); Potassium 3.6 mEq/L (3.5-5.1); Sodium 139 mEq/L (136-145); eGFR For African Americans > 60 (> 60); eGFR For Non-African Americans > 60 (> 60)
[2020-11-27] MEDS: *HR* Heparin 5,000 UNIT/ML VIAL SQ SCH ×3 (05:47→21:51)
[2020-11-27] MEDS: Multivit/Ca/Min/Fe/FA 1 TAB TABLET PO SCH (09:55)
[2020-11-27] MEDS: MetroNIDAZOLE 500 MG/100 ML 500 MG/100 ML BAG IVPB SCH ×2 (09:56→15:20)
[2020-11-27] MEDS: Cefepime HCl 2,000 MG in Water for inj. (sterile) 20 ML IVP SCH ×2 (09:57→15:21)
[2020-11-27] MEDS: Nicotine 21 MG PATCH.TD24 TD SCH (09:58)
[2020-11-27] MEDS: FluPHENAZine 10 MG TABLET PO SCH ×2 (10:01→21:51)
[2020-11-27] MEDS: *HR* OxyCODONE/APAP 10/325 TABLET PO PRN ×2 (10:10→16:51)
[2020-11-27] MEDS: LUMATEPERONE TOSYLATE 42 MG PO SCH (21:51)
[2020-11-28] MEDS: *HR* OxyCODONE/APAP 10/325 TABLET PO PRN ×4 (00:28→20:16)
[2020-11-28] MEDS: Cefepime HCl 2,000 MG in Water for inj. (sterile) 20 ML IVP SCH ×2 (00:30→09:10)
[2020-11-28] MEDS: MetroNIDAZOLE 500 MG/100 ML 500 MG/100 ML BAG IVPB SCH ×2 (00:31→09:09)
[2020-11-28] MEDS: *HR* Heparin 5,000 UNIT/ML VIAL SQ SCH ×3 (05:48→20:19)
[2020-11-28 06:30] LABS: Mean Corpuscular Hemoglobin 21.2 pg (28.0-33.3); Mean Corpuscular Volume 72.9 fL (83.0-100.0); Mean Platelet Volume 9.3 fL (9.4-12.4); Nucleated Red Blood Cells 0.2 /100 WBC (0); Platelet Count 473 K/mcL (140-400); Red Blood Count 4.25 M/mcL (3.82-4.97); Red Cell Distribution Width 21.6 % (11.5-14.5); White Blood Count 13.2 K/mcL (4.3-11.1)
[2020-11-28 06:59] LABS: BUN/Creatinine Ratio 14 (6-26); Blood Urea Nitrogen 7 mg/dL (6-20); Calcium 8.5 mg/dL (8.6-10.3); Carbon Dioxide 24 mEq/L (23-29); Chloride 106 mEq/L (98-107); Glucose 95 mg/dL (70-105); Osmolality,Calculated 280 (280-300); Potassium 3.9 mEq/L (3.5-5.1); Sodium 136 mEq/L (136-145); eGFR For African Americans > 60 (> 60); eGFR For Non-African Americans > 60 (> 60)
[2020-11-28 08:03] LABS: Eosinophils # 0.5 K/mcL (0.0-0.6); Lymphocytes # 1.9 K/mcL (0.6-4.6); Monocytes # 1.1 K/mcL (0.0-1.3); Neutrophils # 9.1 K/mcL (1.6-8.9)
[2020-11-28 08:04] LABS: Anisocytosis 2+ (Not Present); Hypochromasia Present (Not Present); Microcytosis Present (Not Present); Reactive Lymphocytes Present (Not Present); Toxic Granulation Present (Not Present)
[2020-11-28 08:05] LABS: Platelet Estimate Increased (Normal)
[2020-11-28] MEDS: Multivit/Ca/Min/Fe/FA 1 TAB TABLET PO SCH (09:09)
[2020-11-28] MEDS: Nicotine 21 MG PATCH.TD24 TD SCH (09:10)
[2020-11-28] MEDS: FluPHENAZine 10 MG TABLET PO SCH ×2 (09:10→20:21)
[2020-11-28] MEDS: Vancomycin 2,000 MG/520 ML IV.SOLN IVPB SCH ×2 (11:19→23:28)
[2020-11-28] MEDS: metroNIDAZOLE 500 MG TABLET PO SCH ×2 (13:54→20:16)
[2020-11-28] MEDS: LUMATEPERONE TOSYLATE 42 MG PO SCH (20:18)
[2020-11-29] MEDS: *HR* OxyCODONE/APAP 10/325 TABLET PO PRN ×2 (02:26→12:10)
[2020-11-29] MEDS: *HR* Heparin 5,000 UNIT/ML VIAL SQ SCH (06:25)
[2020-11-29 07:02] LABS: Hematocrit 32.1 % (35.3-44.9); Mean Platelet Volume 9.5 fL (9.4-12.4); Red Cell Distribution Width 21.8 % (11.5-14.5)
[2020-11-29 07:04] LABS: Nucleated Red Blood Cells 0.2 /100 WBC (0); Platelet Count 476 K/mcL (140-400); Red Blood Count 4.28 M/mcL (3.82-4.97); White Blood Count 12.4 K/mcL (4.3-11.1)
[2020-11-29 07:25] LABS: BUN/Creatinine Ratio 15 (6-26); Blood Urea Nitrogen 8 mg/dL (6-20); Calcium 8.3 mg/dL (8.6-10.3); Carbon Dioxide 24 mEq/L (23-29); Chloride 106 mEq/L (98-107); Glucose 117 mg/dL (70-105); Osmolality,Calculated 285 (280-300); Potassium 4.4 mEq/L (3.5-5.1); Sodium 138 mEq/L (136-145); eGFR For African Americans > 60 (> 60); eGFR For Non-African Americans > 60 (> 60)
[2020-11-29 07:47] VITALS: BP 126/81
[2020-11-29 08:19] LABS: Eosinophils # 0.3 K/mcL (0.0-0.6); Hypochromasia Present (Not Present); Lymphocytes # 1.4 K/mcL (0.6-4.6); Monocytes # 0.9 K/mcL (0.0-1.3); Neutrophils # 9.3 K/mcL (1.6-8.9); Ovalocytes 1+ (Not Present); Platelet Estimate Increased (Normal)
[2020-11-29] MEDS: Nicotine 21 MG PATCH.TD24 TD SCH (10:33)
[2020-11-29] MEDS: FluPHENAZine 10 MG TABLET PO SCH (10:33)
[2020-11-29] MEDS: Multivit/Ca/Min/Fe/FA 1 TAB TABLET PO SCH (10:33)
[2020-11-29] MEDS: metroNIDAZOLE 500 MG TABLET PO SCH (10:33)
[2020-11-29 11:46] LABS: Adenovirus Not Detected (Not Detect); Bordetella Pertussis Not Detected (Not Detect); Chlamydophila pneumoniae Not Detected (Not Detect); Coronavirus 229E Not Detected (Not Detect); Coronavirus HKU1 Not Detected (Not Detect); Coronavirus NL63 Not Detected (Not Detect); Coronavirus OC43 Not Detected (Not Detect); Human Metapneumovirus Not Detected (Not Detect); Human Rhinovirus/Enterovirus Not Detected (Not Detect); Influenza A Subtype 2009 H1 Not Detected (Not Detect); Influenza B Not Detected (Not Detect); Mycoplasma pneumoniae Not Detected (Not Detect); Parainfluenza Virus 1 Not Detected (Not Detect); Parainfluenza Virus 2 Not Detected (Not Detect); Parainfluenza Virus 3 Not Detected (Not Detect); Parainfluenza Virus 4 Not Detected (Not Detect); Respiratory Syncytial Virus Not Detected (Not Detect); SARS-CoV-2 Not Detected (Not Detect)
[2020-11-29] MEDS: Vancomycin 2,000 MG/520 ML IV.SOLN IVPB SCH (12:10)
== END 2020-11-29 14:50 | DRG 853 ==
LOC: EMEROOARM 07:30 → 3ANU 07:30 → SUATTDRO 11-26 18:09
PROVIDERS: ADMIT Internal Medicine; ATTEND Family Medicine

== ENCOUNTER 2021-03-15 16:41 | Inpatient (IN) ==
[2021-03-15 17:23] LABS: Bilirubin,Urine Negative (Negative); Blood,Urine Negative (Negative); Clarity,Urine Clear (Clear); Color,Urine Colorless (Yellow); Glucose,Urine (UA) Normal (Normal); Ketones,Urine Negative (Negative); Leukocyte Esterase,Urine Negative (Negative); Nitrite,Urine Negative (Negative); PH,Urine 6.5 pH Units (5.0-8.0); Protein,Urine Negative (Neg-Trace); Specific Gravity,Urine 1.005 (1.010-1.025); Urobilinogen,Urine Normal (Normal)
[2021-03-15 18:20] LABS: Acetaminophen < 10 mcg/mL (10-20); BUN/Creatinine Ratio 8 (6-26); Blood Urea Nitrogen 4 mg/dL (6-20); Calcium 8.7 mg/dL (8.6-10.3); Carbon Dioxide 20 mEq/L (23-29); Chloride 105 mEq/L (98-107); Cholesterol 187 mg/dL (< 200); Ethanol < 10 mg/dL (Less than 10); Glucose 174 mg/dL (70-105); HDL Cholesterol 31 mg/dL (40-59); Osmolality,Calculated 279 (280-300); Potassium 3.9 mEq/L (3.5-5.1); Salicylate < 2.5 mg/dL (15.0-30.0); Sodium 134 mEq/L (136-145); Triglycerides 458 mg/dL (< 150); eGFR For African Americans > 60 (> 60); eGFR For Non-African Americans > 60 (> 60)
[2021-03-15 18:23] LABS: Amphetamine Screen,Urine Negative ng/mL (Cutoff=1000); Barbiturate Screen,Urine Negative ng/mL (Cutoff=200); Benzodiazepines Screen,Urine Negative ng/mL (Cutoff=200); Cannabinoid Screen,Urine Negative ng/mL (Cutoff = 50); Cocaine Screen,Urine Negative ng/mL (Cutoff= 300); Opiate Screen,Urine Negative ng/mL (Cutoff=300); Phencyclidine Screen,Urine Negative ng/mL (Cutoff=25)
[2021-03-15 20:33] LABS: Estimated Average Glucose 157 mg/dl; Hemoglobin A1C 7.1 %
[2021-03-15 20:35] LABS: Basophils % 0.2 %; Eosinophils # 0.2 K/mcL (0.0-0.6); Eosinophils % 1.9 %; Hematocrit 38.9 % (35.3-44.9); Immature Granulocytes % 0.4 % (0-4); Lymphocytes # 2.9 K/mcL (0.6-4.6); Lymphocytes % 22.3 %; Mean Corpuscular HGB Conc 30.8 g/dL (31.6-35.5); Mean Corpuscular Hemoglobin 27.5 pg (28.0-33.3); Mean Corpuscular Volume 89.2 fL (83.0-100.0); Mean Platelet Volume 9.3 fL (9.4-12.4); Monocytes # 0.9 K/mcL (0.0-1.3); Monocytes % 6.6 %; Neutrophils # 8.9 K/mcL (1.6-8.9); Platelet Count 487 K/mcL (140-400); Red Blood Count 4.36 M/mcL (3.82-4.97); Red Cell Distribution Width 15.4 % (11.5-14.5); Segmented Neutrophils % 68.6 %; White Blood Count 12.9 K/mcL (4.3-11.1)
[2021-03-16 01:08] LABS: Adenovirus Not Detected (Not Detect); Bordetella Pertussis Not Detected (Not Detect); Chlamydophila pneumoniae Not Detected (Not Detect); Coronavirus 229E Not Detected (Not Detect); Coronavirus HKU1 Not Detected (Not Detect); Coronavirus NL63 Not Detected (Not Detect); Coronavirus OC43 Not Detected (Not Detect); Human Metapneumovirus Not Detected (Not Detect); Human Rhinovirus/Enterovirus Not Detected (Not Detect); Influenza A Subtype 2009 H1 Not Detected (Not Detect); Influenza B Not Detected (Not Detect); Mycoplasma pneumoniae Not Detected (Not Detect); Parainfluenza Virus 1 Not Detected (Not Detect); Parainfluenza Virus 2 Not Detected (Not Detect); Parainfluenza Virus 3 Not Detected (Not Detect); Parainfluenza Virus 4 Not Detected (Not Detect); Respiratory Syncytial Virus Not Detected (Not Detect); SARS-CoV-2 Not Detected (Not Detect)
[2021-03-16] MEDS ORDERED: Haloperidol Lactate 5 MG/ML VIAL IM PRN (01:27)
[2021-03-16] MEDS ORDERED: hydrOXYzine pamoate 25 MG CAPSULE PO PRN (01:27)
[2021-03-16] MEDS ORDERED: *HR* LORazepam 1 MG TABLET PO PRN (01:27)
[2021-03-16] MEDS ORDERED: haloperidoL 5 MG TABLET PO PRN (01:27)
[2021-03-16] MEDS ORDERED: *HR* LORazepam 2 MG/ML VIAL IM PRN (01:27)
[2021-03-16] MEDS ORDERED: QUEtiapine Fumarate 25 MG TABLET PO PRN (01:27)
[2021-03-16] MEDS: FluPHENAZine 10 MG TABLET PO SCH ×2 (08:48→21:10)
[2021-03-16] MEDS: Multivit/Ca/Min/Fe/FA 1 TAB TABLET PO SCH ×2 (08:48→10:20)
[2021-03-16] MEDS ORDERED: MOM Conc 10 ML UD.LIQ PO PRN (10:19)
[2021-03-16] MEDS ORDERED: Mag Hydrox/Al Hydrox/Simeth 30 ML UDC PO PRN (10:19)
[2021-03-16] MEDS: cephALEXin 500 MG CAPSULE PO SCH ×3 (12:46→20:56)
[2021-03-16] MEDS: metroNIDAZOLE 500 MG TABLET PO SCH ×2 (15:22→20:56)
[2021-03-16] MEDS: Lumateperone Tosylate [Caplyta] 42 MG PO SCH (21:08)
[2021-03-17] MEDS: cephALEXin 500 MG CAPSULE PO SCH ×4 (10:04→20:37)
[2021-03-17] MEDS: metroNIDAZOLE 500 MG TABLET PO SCH ×3 (10:04→20:37)
[2021-03-17] MEDS: Multivit/Ca/Min/Fe/FA 1 TAB TABLET PO SCH (10:04)
[2021-03-17] MEDS: FluPHENAZine 10 MG TABLET PO SCH ×2 (10:05→20:40)
[2021-03-17] MEDS: Lumateperone Tosylate [Caplyta] 42 MG PO SCH (20:40)
[2021-03-18] MEDS: cephALEXin 500 MG CAPSULE PO SCH ×4 (08:52→20:51)
[2021-03-18] MEDS: Multivit/Ca/Min/Fe/FA 1 TAB TABLET PO SCH (08:52)
[2021-03-18] MEDS: metroNIDAZOLE 500 MG TABLET PO SCH ×3 (08:52→20:50)
[2021-03-18] MEDS: FluPHENAZine 10 MG TABLET PO SCH ×2 (08:53→21:04)
[2021-03-18] MEDS: Acetaminophen 325 MG TABLET PO PRN (16:26)
[2021-03-18] MEDS: Lumateperone Tosylate [Caplyta] 42 MG PO SCH (21:04)
[2021-03-19] MEDS: Multivit/Ca/Min/Fe/FA 1 TAB TABLET PO SCH (10:55)
[2021-03-19] MEDS: metroNIDAZOLE 500 MG TABLET PO SCH ×2 (10:55→15:38)
[2021-03-19] MEDS: cephALEXin 500 MG CAPSULE PO SCH ×2 (10:55→17:31)
[2021-03-19] MEDS: FluPHENAZine 10 MG TABLET PO SCH ×2 (10:55→21:15)
[2021-03-19] MEDS ORDERED: ARIPiprazole 400 MG SUSER.SYR IM SCH (15:00)
[2021-03-19] MEDS: ARIPiprazole 10 MG TABLET PO SCH (20:45)
[2021-03-19] MEDS: Acetaminophen 325 MG TABLET PO PRN (21:13)
[2021-03-20] MEDS: Multivit/Ca/Min/Fe/FA 1 TAB TABLET PO SCH (09:18)
[2021-03-20] MEDS: ARIPiprazole 10 MG TABLET PO SCH (20:40)
[2021-03-21] MEDS: Multivit/Ca/Min/Fe/FA 1 TAB TABLET PO SCH (08:24)
[2021-03-21] MEDS: Loratadine 10 MG TABLET PO SCH (18:08)
[2021-03-21] MEDS: ARIPiprazole 10 MG TABLET PO SCH (20:21)
[2021-03-21] MEDS: Ibuprofen 400 MG TABLET PO PRN (20:21)
[2021-03-21] MEDS: Acetaminophen 325 MG TABLET PO PRN (20:51)
[2021-03-22] MEDS: Multivit/Ca/Min/Fe/FA 1 TAB TABLET PO SCH (08:30)
[2021-03-22] MEDS: Loratadine 10 MG TABLET PO SCH ×2 (08:35→08:37)
[2021-03-22 09:03] VITALS: PULSE 97
[2021-03-22] MEDS ORDERED: Melatonin 3 MG TABLET PO PRN (12:01)
[2021-03-22] MEDS: Acetaminophen 325 MG TABLET PO PRN (14:58)
[2021-03-22] MEDS: ARIPiprazole 10 MG TABLET PO SCH (20:11)
[2021-03-22] MEDS: Ibuprofen 400 MG TABLET PO PRN (20:53)
[2021-03-22] MEDS ORDERED: Haloperidol Oral Conc 10 MG/5 ML UDC PO SCH (21:00)
[2021-03-22] MEDS ORDERED: haloperidoL 5 MG TABLET PO SCH (21:00)
[2021-03-22 22:17] VITALS: BP 139/80; TEMP 98.6; O2SAT 92
[2021-03-23] MEDS: Loratadine 10 MG TABLET PO SCH (08:57)
[2021-03-23] MEDS: Multivit/Ca/Min/Fe/FA 1 TAB TABLET PO SCH (08:57)
== END 2021-03-23 09:45 | disposition home or self-care (01) | DRG 885 ==
LOC: EMEROOARM 16:41 → 1ANU 03-16 01:24
PROVIDERS: ADMIT Psychiatry & Neurology Psychiatry; ATTEND Psychiatry & Neurology Psychiatry

== ENCOUNTER 2022-03-10 12:03 | Inpatient (IN) ==
[2022-03-10 12:33] LABS: Bilirubin,Urine Negative (Negative); Blood,Urine Negative (Negative); Clarity,Urine Clear (Clear); Color,Urine Colorless (Yellow); Glucose,Urine (UA) Normal (Normal); Ketones,Urine Negative (Negative); Leukocyte Esterase,Urine Negative (Negative); Nitrite,Urine Negative (Negative); PH,Urine 6.5 pH Units (5.0-8.0); Protein,Urine Negative (Neg-Trace); Specific Gravity,Urine < 1.005 (1.010-1.025); Urobilinogen,Urine Normal (Normal)
[2022-03-10 13:04] LABS: Basophils % 0.2 %; Eosinophils # 0.1 K/mcL (0.0-0.6); Eosinophils % 1.1 %; Hematocrit 39.3 % (35.3-44.9); Hemoglobin 12.2 g/dL (11.5-15.4); Immature Granulocytes % 0.4 % (0-4); Lymphocytes # 2.3 K/mcL (0.6-4.6); Mean Corpuscular Hemoglobin 25.5 pg (28.0-33.3); Mean Corpuscular Volume 82.2 fL (83.0-100.0); Mean Platelet Volume 9.4 fL (9.4-12.4); Monocytes # 0.6 K/mcL (0.0-1.3); Monocytes % 5.5 %; Neutrophils # 8.3 K/mcL (1.6-8.9); Platelet Count 428 K/mcL (140-400); Red Blood Count 4.78 M/mcL (3.82-4.97); Red Cell Distribution Width 19.8 % (11.5-14.5); Segmented Neutrophils % 72.8 %; White Blood Count 11.4 K/mcL (4.3-11.1)
[2022-03-10 13:49] LABS: Amphetamine Screen,Urine Negative ng/mL (Cutoff=1000); Barbiturate Screen,Urine Negative ng/mL (Cutoff=200); Benzodiazepines Screen,Urine Negative ng/mL (Cutoff=200); Cannabinoid Screen,Urine Negative ng/mL (Cutoff = 50); Cocaine Screen,Urine Negative ng/mL (Cutoff= 300); Opiate Screen,Urine Negative ng/mL (Cutoff=300); Phencyclidine Screen,Urine Negative ng/mL (Cutoff=25)
[2022-03-10 13:50] LABS: Acetaminophen < 10 mcg/mL (10-20); BUN/Creatinine Ratio 14 (6-26); Blood Urea Nitrogen 9 mg/dL (6-20); Calcium 8.9 mg/dL (8.6-10.3); Carbon Dioxide 23 mEq/L (23-29); Chloride 101 mEq/L (98-107); Ethanol < 10 mg/dL (Less than 10); Glucose 147 mg/dL (70-105); Osmolality,Calculated 281 (280-300); Potassium 3.7 mEq/L (3.5-5.1); Salicylate < 2.5 mg/dL (15.0-30.0); Sodium 135 mEq/L (136-145); eGFR For African Americans > 60 (> 60); eGFR For Non-African Americans > 60 (> 60)
[2022-03-10 16:26] LABS: Influenza A PCR Negative (Negative); Influenza B PCR Negative (Negative); Resp. Syncytial Virus PCR Negative (Negative)
[2022-03-10 16:27] LABS: SARS-CoV-2 by PCR (In House) Negative (Negative)
[2022-03-10] MEDS ORDERED: QUEtiapine Fumarate 25 MG TABLET PO PRN (18:29)
[2022-03-10] MEDS ORDERED: MOM Conc 10 ML UD.LIQ PO PRN (18:29)
[2022-03-10] MEDS ORDERED: *HR* LORazepam 2 MG/ML VIAL IM PRN (18:29)
[2022-03-10] MEDS ORDERED: *HR* LORazepam 1 MG TABLET PO PRN (18:29)
[2022-03-10] MEDS ORDERED: Mag Hydrox/Al Hydrox/Simeth 30 ML UDC PO PRN (18:29)
[2022-03-10] MEDS ORDERED: haloperidoL 5 MG TABLET PO PRN (18:29)
[2022-03-10] MEDS ORDERED: hydrOXYzine pamoate 25 MG CAPSULE PO PRN (18:29)
[2022-03-10] MEDS ORDERED: Acetaminophen 325 MG TABLET PO PRN (18:29)
[2022-03-10] MEDS ORDERED: Haloperidol Lactate 5 MG/ML VIAL IM PRN (18:29)
[2022-03-10] MEDS ORDERED: Ibuprofen 400 MG TABLET PO PRN (18:29)
[2022-03-11] MEDS ORDERED: Melatonin 3 MG TABLET PO PRN (11:57)
[2022-03-11] MEDS: *HR* Metformin 500 MG TABLET PO SCH (16:42)
[2022-03-11] MEDS: Clotrimazole 1% CRM 15 GM TUBE TP SCH (21:23)
[2022-03-11] MEDS: haloperidoL 5 MG TABLET PO SCH (21:23)
[2022-03-12] MEDS: Fluconazole 150 MG TABLET PO SCH (08:24)
[2022-03-12] MEDS: ARIPiprazole 10 MG TABLET PO SCH (08:24)
[2022-03-12] MEDS: *HR* Metformin 500 MG TABLET PO SCH ×2 (08:24→17:35)
[2022-03-12] MEDS: Clotrimazole 1% CRM 15 GM TUBE TP SCH ×2 (08:25→21:37)
[2022-03-12] MEDS: FLUoxetine 20 MG CAPSULE PO SCH (08:52)
[2022-03-12] MEDS ORDERED: FLUoxetine 20 MG CAPSULE PO SCH (09:00)
[2022-03-12] MEDS ORDERED: FLUoxetine HCl Oral Soln 20 MG/5 ML UDC PO SCH (09:00)
[2022-03-12 09:14] VITALS: O2SAT 97
[2022-03-12] MEDS: haloperidoL 5 MG TABLET PO SCH (21:38)
[2022-03-13] MEDS: *HR* Metformin 500 MG TABLET PO SCH (09:21)
[2022-03-13] MEDS: Fluconazole 150 MG TABLET PO SCH (09:21)
[2022-03-13] MEDS: ARIPiprazole 10 MG TABLET PO SCH (09:22)
[2022-03-13] MEDS: FLUoxetine 20 MG CAPSULE PO SCH (09:22)
[2022-03-13] MEDS: Clotrimazole 1% CRM 15 GM TUBE TP SCH (09:26)
[2022-03-13 09:37] VITALS: BP 143/88; PULSE 90; TEMP 97.5
== END 2022-03-13 15:00 | disposition home or self-care (01) | DRG 885 ==
LOC: EMEROOARM 12:03 → 1ANU 16:38
PROVIDERS: ADMIT Psychiatry & Neurology Forensic Psychiatry; ATTEND Psychiatry & Neurology Forensic Psychiatry